=== PATIENT | male | born 1955 | race Caucasian/White ===

== ENCOUNTER → 2021-09-03 07:44 | Outpatient (CLI) | payer MEDICARE, SELFPAY ==
--- NOTE | ~2021-09-03 | US_ITS ---
EXAMINATION: US abdomen complete DATE: 09/03/2021 08:09 INDICATION: Disorder of iron metabolism, unspecified. TECHNIQUE: Multiple grayscale and Doppler ultrasound images of the abdomen were obtained. COMPARISON: None FINDINGS: The visualized portions of the head, body, and tail of the pancreas are normal. There is di ffuse hepatic steatosis. No liver surface nodularity. The gallbladder is normal in size. No gallstone s or gallbladder wall thickening. There was no sonographic Judge sign. The common duct is normal and measures 4 mm. The kidneys are normal in size. There is a 6 mm hyperechoic mass in the kidney. The s pleen is normal in size. Inferior vena cava is normal. The abdominal aorta is normal in caliber. IMPRESSION: 1. Diffuse hepatic steatosis. 2. 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 Abdomen CT without and with co ntrast is recommended in 6 months. Reviewed, dictated and finalized at location B. 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 Diffuse hepatic steatosis. 2. 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 Abdomen CT without and with contrast is recommended in 6 months.
== END ==
PROVIDERS: PCP Emergency Medicine; Visit Provider Emergency Medicine
DX: E83.10 Disorder of iron metabolism, unspecified (principal); K76.0 Fatty (change of) liver, not elsewhere classified; N28.89 Other specified disorders of kidney and ureter
CPT/HCPCS: 76700

== ENCOUNTER 2022-05-31 07:51 | Outpatient (CLI) | payer MEDICARE, SELFPAY ==
--- NOTE | 2022-06-25 13:25 | WPDSLEEPSTUD ---
Sleep Study Date of Study: 05/31/22 Ordering Provider: Radha Diaz, SUPERVISOR [employer]WORK Interpreting Physician: Emmy Evans MD Sleep Study Type: Split Polysomnogram Height: 1.83 m Weight: 127.006 kg Body Mass Index: 38.0 Neck Circumference (inches): 19 Allison: 2 Reason for Sleep Study Re-evaluation to get new CPAP supplies; initial diagnosis 1998, no supplies since 2018. Sleep History Rah Yanez is a 66-year-old man who has obstructive sleep apnea and uses CPAP. He was initially treated in 1998. In 2017 he started having supervision of his CPAP, previously no one had followed any compliance. He has not had any new supplies since 2018. There are other family members with sleep apnea, he has a brother that uses CPAP. He constantly awakens from sleep feeling short of breath. He does not awaken with heartburn, belching or coughing but always snores loudly. He occasionally has trouble sleeping with a cold. He frequently wakes up gasping for breath at night. He frequently has breathing problems at night observed by others. He rarely sweats excessively at night. He occasionally notices his heart beating or pounding irregularly at night. Does not fall asleep during the day, involuntarily or while driving. He does not have loss of muscle tone with strong emotion. He does not feel paralyzed on waking or falling asleep. He denies vivid dreamlike scenes on waking or falling asleep. He does not feel afraid to go to sleep. He does not have nightmares. He does not have dream recall. He occasionally has racing thoughts. Does not feel sad or depressed. He rarely has anxiety. He does not have muscular tension. Occasionally notices parts of his body jerking. He rarely kicks at night. He does not have crawling or aching feelings in his legs. He constantly has leg pain at night. Does not have morning jaw pain. He does not grind his teeth during sleep. He frequently is bothered by pain during the day. He occasionally is awakened by pain at night. He does not wake up feeling stiff in the morning with sore achy muscles are pain in the neck and spine. He has palpitations. Normal bedtime is 1:00 a.m. taking an hour or more to fall asleep. He typically wakes up 1-2 times during the night. He will roll over and reposition. It takes him a few minutes to get back to sleep. Wakes in the morning by 10:00 a.m.. He has the same schedule on the weekend. He does not take naps in the afternoon. A short nap lasting 10 or 15 minutes may be refreshing. After an average night of sleep he rarely feels refreshed. He frequently has excessive daytime sleepiness. Occasionally has problems with sexual function. Habits: Quit tobacco 33 years ago. No caffeine. Alcohol 1 per week. No recreational drugs. 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 diabetes type 2 hydrochlorothiazide 25 mg a day for hypertension metoprolol tartrate 25 mg a day hypertension glimepiride 4 mg a day diabetes atorvastatin 10 mg a day amitriptyline 75 mg HS for sleep Sleep Procedure This test was performed using the [employer] [facility] multiple channel system including EOG, EEG, submental EMG, EKG, nasal and oral airflow using thermistors and nasal pressure sensors, chest and abdominal belts for body position data, and pulse oximetry. Video monitoring was also performed. The study was scored using CMS guidelines. After the baseline portion the patient met criteria for a titration with an apnea hypopnea index of 40.1 an
[2022-06-25 14:15] VITALS: BMI 38.0
== END 2022-06-01 05:31 | disposition home or self-care (01) ==
PROVIDERS: PCP Internal Medicine; Visit Provider Nurse Practitioner
DX: G62.9 Polyneuropathy, unspecified (principal); G47.33 Obstructive sleep apnea (adult) (pediatric); G47.39 Other sleep apnea
CPT/HCPCS: 95811

== ENCOUNTER 2023-02-03 08:44 | Outpatient (CLI) | payer MEDICARE, SELFPAY ==
--- NOTE | 2023-02-03 | ECG_ITS ---
Measurements Intervals [place] Rate: 70 P: 34 WY: 161 QRS: -68 QRSD: 156 T: 30 QT: 420 QTc: 456 Interpretive Statements SINUS RHYTHM RIGHT BUNDLE BRANCH BLOCK [120+ ms QRS DURATION, UPRIGHT V1, 40+ ms S IN I/aVL/V4/V5/V6] LEFT ANTERIOR FASCICULAR BLOCK [QRS AXIS <= -45, QR IN I, RS IN II] MODERATE VOLTAGE CRITERIA FOR LVH, CONSIDER NORMAL VARIANT [MEETS CRITERIA IN ONE OF: R(aVL), S(V1), R(V5), R(V5/V6)+S(V1)] NO PREVIOUS ECG AVAILABLE FOR COMPARISON Electronically Signed On 02-03-2023 14:05:49 CDT by Della Valencia M.D.
--- NOTE | ~2023-02-03 | MR_ITS ---
EXAMINATION: MR lumbar spine wo con DATE: 02/03/2023 09:56 INDICATION: Mononeuropathy. Diabetes. TECHNIQUE: Magnetic resonance imaging (MRI) of the lumbar spine was performed without intravenous con trast. Sequences included sagittal T2-weighted FSE, sagittal T2-weighted FS FSE, sagittal T1-weighted FSE, and axial T2-weighted FSE. COMPARISON: None FINDINGS: Bone alignment is normal. There is mild chronic anterior wedging of T12 vertebral body. The re are Schmorl's nodes at most levels. There is mildly decreased disc height at L4-L5. The distal spi nal cord signal intensity is normal. The conus medullaris is at L1. The following disc levels are spe cifically discussed: L1-L2: The disc is bulging. There is mild bilateral facet joint osteoarthritis. There is mild left ne ural foraminal stenosis. There is no central canal stenosis. L2-L3: The disc is bulging. There is moderate bilateral facet joint osteoarthritis. There is mild fernando ateral neural foraminal stenosis. There is mild central canal stenosis. L3-L4: The disc is bulging. There is moderate bilateral facet joint osteoarthritis. There is mild fernando ateral neural foraminal stenosis. There is mild central canal stenosis. L4-L5: The disc is bulging and has an annular fissure. There is severe bilateral facet joint osteoart hritis. There is moderate bilateral neural foraminal stenosis. There is moderate central canal stenos is. L5-S1: The disc is bulging and has an annular fissure. There is moderate bilateral facet joint osteoa rthritis. There is mild bilateral neural foraminal stenosis. There is mild central canal stenosis. IMPRESSION: 1. Moderate lumbar spondylosis, worst at L4-L5. Reviewed, dictated and finalized at location A.
--- NOTE | ~2023-02-03 | MR_ITS ---
EXAMINATION: MR thoracic spine wo con DATE: 02/03/2023 09:53 INDICATION: Mononeuropathy. Diabetes. TECHNIQUE: Magnetic resonance imaging (MRI) of the thoracic spine was performed without intravenous c ontrast. COMPARISON: None FINDINGS: There is an arachnoid cyst at the inferior aspect of the cerebellum at the midline. There i s 2 mm anterolisthesis of C4 on C5. There is kyphosis of cervical spine. There is mild chronic anteri or wedging of T3, T6, T7, T8, T9, T10, and T12 vertebral bodies. There is a hemangioma in T4 vertebra l body. There is mildly decreased disc height from T3-T4 through T8-T9. At T5-T6, there is a central protrusion with mild central canal stenosis. At T6-T7, there is a central extrusion with mild central canal stenosis and ventral indentation of spinal cord. At T7-T8, the disc is bulging with mild centr al canal stenosis. At T11-T12, the disc is bulging with mild central canal stenosis. There is multile nancy facet joint osteoarthritis, severe on the right at T3-T4, T4-T5, and T5-T6. On the right, there i s mild neural foraminal stenosis at T3-T4, T4-T5, T5-T6, and T11-T12. On the left, there is mild neur al foraminal stenosis at T4-T5 and T9-T10. The spinal cord signal intensity is normal. IMPRESSION: 1. Mild thoracic spondylosis. 2. Thoracic kyphosis. Reviewed, dictated and finalized at location A.
[2023-02-03 10:44] LABS: Appearance Urine Clear (Clear); Bilirubin Urine Negative (Negative); Blood Urine Negative (Negative); Color Urine Yellow (Yellow); Glucose Urine UA Negative (Negative); Ketones Urine 2+ mg/dL (Negative); Leukocyte Esterase Ur Negative LEU/UL (Negative); Nitrate Urine Negative (Negative); Protein Urine Negative (Negative); Specific Grav Ur 1.022 (1.001-1.035)
[2023-02-03 10:44] LABS: Basophils Percent Auto 0.6 % (0.2-1.2); Eosinophils Absolute Auto 0.1 K/mm3 (0-0.3); Eosinophils Percent Auto 1.8 % (0-4.4); Hematocrit 47.3 % (42.0-52.0); Immature Granulocyte Absolute 0.02 K/mm3 (0.00-0.031); Immature Granulocyte Percent A 0.3 % (0-0.5); Immature Platelet Fraction Pct 4.1 % (0.9-11.2); Lymphocytes Absolute Auto 1.28 K/mm3 (0.9-3.2); Lymphocytes Percent Auto 20.6 % (18.3-44.2); Mean Corpuscular HGB Conc 33.8 g/dl (32-36); Mean Corpuscular Hemoglobin 33.5 pg (26-34); Mean Platelet Volume 10.6 fl (7.4-10.4); Monocytes Absolute Auto 0.6 K/mm3 (0.1-0.6); Monocytes Percent Auto 9.3 % (2.6-8.5); Neutrophils Absolute Auto 4.2 K/mm3 (1.3-6.7); Neutrophils Percent Auto 67.4 % (45.5-73.1); Platelet Count Result 152 k/mm3 (150-375); Red Blood Count 4.78 M/mm3 (4.6-6.20); Red Cell Distribution Width 12.2 % (11.5-14.5); White Blood Count 6.2 K/mm3 (4.5-10.0)
[2023-02-03 10:46] LABS: Add Urine Microscopic? NO
[2023-02-03 10:52] LABS: Alanine Aminotransferase 40 U/L (6-50); Albumin Level 4.3 g/dL (3.5-5.1); Alkaline Phosphatase 75 U/L (38-126); Anion Gap 9 mmol/L (8-16); Aspartate Amino Transferase 38 U/L (17-59); Bilirubin,Total 1.1 mg/dL (0.2-1.3); Blood Urea Nitrogen 15 mg/dL (9-20); Carbon Dioxide 27 mmol/L (22-30); Chloride 102 mmol/L (98-107); Estimated Glomerular Filt Rate > 60; Glucose 151 mg/dL (65-110); Potassium 3.8 mmol/L (3.4-5.0); Sodium 138 mmol/L (137-145)
== END 2023-02-03 08:45 | disposition home or self-care (01) ==
PROVIDERS: PCP Family Medicine
DX: E11.41 Type 2 diabetes mellitus with diabetic mononeuropathy (principal); M47.814 Spondylosis without myelopathy or radiculopathy, thoracic region; M40.204 Unspecified kyphosis, thoracic region
CPT/HCPCS: 36415; 72146; 72148; 80053; 81003; 85025; 85055; 93005

== ENCOUNTER → 2023-04-03 09:28 | Outpatient (CLI) | payer MEDICARE, SELFPAY ==
--- NOTE | ~2023-04-03 | XR_ITS ---
Thoracic spine: Clinical Indication: Neurostimulator AP and lateral views were performed. No fracture is seen. There is normal alignment of the vertebrae. The intervertebral disc spaces appe ar normal. Paravertebral soft tissues appear normal. Intrathecal catheter/neurostimulator wires prese nt. There is DISH of the thoracic spine. Impression: Intrathecal neurostimulator wire/catheter present. DISH of the thoracic spine. Reviewed, dictated and finalized at location . Impression: Intrathecal neurostimulator wire/catheter present. DISH of the thoracic spine.
== END ==
PROVIDERS: PCP Family Medicine
DX: Z96.82 Presence of neurostimulator (principal); M48.14 Ankylosing hyperostosis [Forestier], thoracic region
CPT/HCPCS: 72070

== ENCOUNTER 2023-04-17 09:14 | Outpatient (CLI) | payer MEDICARE, SELFPAY ==
--- NOTE | 2023-04-17 11:30 | NEURO_ITS ---
Impression: # Non-insulin dependent diabetic complains of left hand numbness. # Left ulnar neuropathy across the elbow. # Mild early left Carpal Tunnel Syndrome. # Abnormal neurogenic needle/EMG exam in ulnar distribution. Nerve Conduction Studies Anti Sensory Summary Table Stim Site NR Peak (ms) P-T Amp (?V) Site1 Site2 Delta-P (ms) Dist (cm) Joey (m/s) Left Median Anti Sensory (2-3nd Digit) Wrist 4.0 10.2 Wrist 2-3nd Digit 4.0 14.0 35 Wrist 4.0 18.6 Wrist 2-3nd Digit 4.0 14.0 35 Left Radial Anti Sensory (Base 1st Digit) Wrist 2.5 29.5 Wrist Base 1st Digit 2.5 0.0 Left Ulnar Anti Sensory (5th Digit) Wrist 2.5 27.2 Wrist 5th Digit 2.5 14.0 56 Motor Summary Table Stim Site NR Onset (ms) O-P Amp (mV) Site1 Site2 Delta-0 (ms) Dist (cm) Joey (m/s) Left Median Motor (Abd Poll Brev) Wrist 4.1 2.7 Elbow Wrist 6.0 33.0 55 Elbow 10.1 2.6 Left Ulnar Motor (Abd Dig Minimi) Wrist 2.8 3.6 A Elbow Wrist 7.2 31.0 43 A Elbow 10.0 2.7 B Elbow Wrist 4.2 22.0 52 B Elbow 7.0 2.1 F Wave Studies NR F-Lat (ms) L-R F-Lat (ms) Left Median (Mrkrs) (Abd Poll Brev) 33.68 Left Ulnar (Mrkrs) (Abd Dig Min) 33.64 EMG Side Muscle Nerve Root Ins Act Fibs Amp Dur Recrt Comment Left 1stDorInt Ulnar C8-T1 Nml Nml Decr >12ms Reduced Left Ext Indicis Radial (Post Int) C7-8 Nml Nml Nml Nml Nml Left Ext Digitorum Radial (Post Int) C7-8 Nml Nml Nml Nml Nml Left BrachioRad Radial C5-6 Nml Nml Nml Nml Nml Left PronatorTeres Median C6-7 Nml Nml Nml Nml Nml Left Abd Poll Brev Median C8-T1 Nml Nml Nml Nml Nml Left ABD Dig Min Ulnar C8-T1 Nml Nml Decr >12ms Reduced MTDD
== END 2023-04-17 09:15 | disposition home or self-care (01) ==
PROVIDERS: PCP Family Medicine; Visit Provider Physician Assistant Medical
DX: G56.22 Lesion of ulnar nerve, left upper limb (principal); G56.02 Carpal tunnel syndrome, left upper limb
CPT/HCPCS: 95886; 95909

== ENCOUNTER 2023-06-21 00:20 | Day surgery (SDC) | payer MEDICARE, SELFPAY ==
[2023-06-20 09:31] VITALS: BMI 38.0
--- NOTE | 2023-06-20 09:45 | PC.NURSE ---
Report to the Outpatient Waiting Room, entrance under the green pavilion located off [facility], at time __0600 on date ___06/21/23____. Planned Procedure Time: ____729____. Time changes happen often and if your time is changed the preop area will call you the afternoon before. - You and your visitor will be asked to self-screen and do not enter if you have any COVID symptoms. - A mask is optional within the hospital at this time. - No food/drink from 8 HRS PRIOR TO SURGERY - 222906/19/23 (10:30PM 06/20/23) Take the following medications with a SIP of water the morning of surgery: __GABAPENTIN, METOPROLOL & PAIN PILL IF NEEDED DO NOT STOP ANY OF YOUR OTHER PRESCRIPTION MEDICATIONS PRIOR TO SURGERY ?EXCEPT THE FOLLOWING Medications to discontinue per physician N/A Date to take last dose Please no make-up, nail bhutanese, hairspray, perfume, deodorant, or body powder the day of surgery. No jewelry (including any body piercings) or valuables the day of surgery, leave them at home. Please take a shower or bath the night before, or the morning of, surgery with an antibacterial soap. Wear comfortable, loose fitting clothing. Children are encouraged to wear pajamas. - Jewelry must be removed prior to entering the operating room. Rings and piercings that are not removed may be cut off. - The hospital will not accept responsibility for valuables. - Please leave all valuables, including medications, at home the day of surgery. If you are going home after surgery, a licensed route delivery service driver must drive you home. - NO public transportation without another adult if you receive anesthesia. - We recommend that an adult stay with you for 24 hours following discharge. - We also recommend that you do not drive, make important decision, drink alcoholic beverages, or take any drugs that were not prescribed by your health care provider for at least 24 hours after your discharge time. For Pediatric surgeries, we recommend two adults accompany the child home. Follow any additional instructions given to you from your surgeon. If you or anyone in your household have experienced Covid symptoms in the past week, please notify your surgeon or the nurse liaison at the phone number below for possible testing. Telephone instructions given to ___PT and asked if any additional questions and then verbalized understanding. Patient advised to call surgeon office or pre surgery nurse liaison [phone] if any additional questions.
[2023-06-21 06:23] VITALS: BP 139/74; PULSE 83; RESP 18; TEMP 36.4; O2SAT 95
[2023-06-21] MEDS: LACTATED RINGERS 1,000 ML 30 ML IV CONT (06:40)
[2023-06-21 06:47] LABS: Glucose Point of Care 209 mg/dl (65-105)
[2023-06-21 06:59] LABS: Anion Gap 10 mmol/L (8-16); Blood Urea Nitrogen 17 mg/dL (9-20); Calcium 9.2 mg/dL (8.4-10.2); Carbon Dioxide 25 mmol/L (22-30); Chloride 102 mmol/L (98-107); Estimated CRCL calculation 105 ml/min; Estimated Glomerular Filt Rate > 60; Glucose 197 mg/dL (65-110); Potassium 3.9 mmol/L (3.4-5.0); Sodium 137 mmol/L (137-145)
--- NOTE | 2023-06-21 07:00 | WPDHPUPDATE1 ---
History and Physical Update Update Date/Time: 06/21/23 07:00 Patient seen and examined in pre-operative holding area. No interval change in medical history or symptoms. Continues to desire to proceed with left cubital tunnel release, left carpal tunnel release revision, and left guyon canal release . Reviewed procedure, post-op expectations and risks including but not limited to bleeding, infection, injury to tendon/nerve/vessel, decreased hand function, stiffness, RSD, no change or worsening of symptoms. Patient stated understanding and signed the consent form wishing to proceed.
--- NOTE | 2023-06-21 07:12 | P.OP_ITS ---
Procedure Note - Detailed Date of Procedure 06/21/23 Pre-op Diagnosis left cubital tunnel syndrome and left carpal tunnel and guyon canal syndrome Post-op Diagnosis Same Procedure Performed left cubital tunnel release and left carpal tunnel release revisiion and guyon canal release Surgeon Alissa Mckay MD Concrete Tester Rayne Rodríguez PA-C Anesthesia MAC Description of Procedure Patient was seen and examined in pre-op holding area. Consent was signed. Patient was taken back to the operating room on the stretcher in supine position. SCDs were placed on the lower extremities and inflated. Antibiotics were given IV. A tourniquet was placed on the left upper extremity. After ane sthesia administered sedation I injected 10cc 1%lido with epi and 0.5%marcaine plain among the operative sites. The left upper extremity was exanguinated with an esmarch and tourniquet inflated to 250mmHg. I proceeded with making a longitudinal inciison over end of cubital tunnel between two heads of FCU through skin and dermis with a 15 blade scalpel. Littler scissors were used to spread down to FCU fascia. I made an incision in the FCU facia and spread between the two heads identifying the ulnar nerve. I proceeded with complete retrograde of the cubital tunnel including 7cm proximal to epicondyle to release intramuscular septum. The nerve appeared healthy with visible vaso nervorum. I put elbow through range of motion and no subluxation of the nerve. I irrigated with normal saline and closued with 3-0 vicryl and 4- 0 monocryl. Next I took my attention to the left wrist where I made a volar incision in palm in line with ring finger and then obliquely across wrist flexion crease to create an ulnarly based flap. I identified the median nerve proximally outside previous zone of surgery and proceeded with release of scar and carpal tunnel in an anterograde fashion. Tenolysis was performed on the flexor digitorum superficialis tendons for excessive tenosynovitis and attachment to the median nerve. I proceeded with idenitifying the ulnar nerve proximally and proceeded with complete release of guyon canal identifying both superficial and deep branches distally. no ganglion cyst was seen. I irrigation with normal saline and closure with 4-0 chromic. A dressing of xeroform, 4x4, jacquelyn, and a volar splint for patient safety, security and comfort was applied and secured with an marycruz bandage. The elbow was dressing with derabond, 4x4, jacquelyn, posterior elbow splint and marycruz. Dressings were placed after the tourniquet was let down noting the hand was warm and well perfused. The patient was awaken and transferred to recovery room in stable conditiion. Complications: none EBL: 1cc Disposition: tolerated procedure well and will be discharged home Rayne Rodríguez PA-C was essential throughout the procedure for positioning, retraction, instrumentation, closure, and dressing placement [facility] [place] Billing Surgery - Charge Forward: Surgery Billing (10547, [id number], [id number], and [id number]. same codes for Rayne Rodríguez PA-C but add modifier to all)
--- NOTE | 2023-06-21 07:15 | WPDANESEPPF ---
Anes - Initial Pre Proc Eval Procedure: Operation Date: 06/21/23 07:30 Proposed Procedures p Left Cubital Tunnel Release, Possible Open Carpal Tunnel Release, Possible Guyon's Canal Release - Alissa Mckay MD Date/Time: 06/21/23 07:15 Surgeon: Alissa Mckay MD Pre Op Diagnosis: left ulnar nerve entrapment at elbow Patient Data Age: 67 Gender: M Height: 1.83 m Weight: 127.9 kg Last Vital Signs Temp 97.5 F L 06/21/23 06:23 Pulse 83 06/21/23 06:23 Resp 18 06/21/23 06:23 BP 139/74 06/21/23 06:23 Pulse Ox 95 06/21/23 06:23 O2 Del Method Room Air 06/21/23 06:23 Allergies Allergy/AdvReac Type Severity Reaction Status Date / Time No Known Allergies Allergy Verified 06/21/23 06:48 Home Medications Medication Instructions Recorded Confirmed Type atorvastatin 10 mg tablet 10 mg PO QHS 03/05/23 06/21/23 History gabapentin 600 mg tablet See Rx Instructions .Route .COMPLEX 03/05/23 06/21/23 History glimepiride 4 mg tablet 4 mg PO QAM 03/05/23 06/21/23 History hydrochlorothiazide 25 mg tablet 25 mg PO DAILY 03/05/23 06/21/23 History metformin 750 mg tablet,extended 750 mg PO BID 03/05/23 06/21/23 History release 24 hr metoprolol tartrate 25 mg tablet 37.5 mg PO DAILY 03/05/23 06/21/23 History oxycodone-acetaminophen 10 mg-325 1 tablet PO Q8H PRN Pain 03/05/23 06/21/23 History mg tablet testosterone 75 mg implant pellet 700 mg subcut ONCE 03/05/23 06/21/23 History (Testopel) trazodone 100 mg tablet 150 mg PO QHS 06/20/23 06/21/23 History Laboratory Tests 06/21/23 06/21/23 06:41 06:42 Sodium 137 mmol/L (137-145) Potassium 3.9 mmol/L (3.4-5.0) Chloride 102 mmol/L (98-107) Carbon Dioxide 25 mmol/L (22-30) Anion Gap 10 mmol/L (8-16) BUN 17 mg/dL (9-20) Creatinine 0.80 mg/dL (0.7-1.3) Estim Creat Clear Calc 105 ml/min Estimated GFR > 60 (59 - ) Glucose 197 H mg/dL (65-110) POC Capillary Glucose 209 H mg/dl (65-105) Calcium 9.2 mg/dL (8.4-10.2) Patient hx anesthesia problems: none Family hx anesthesia problems: none Results Review: All pre-operative results and documents have been reviewed as part of the pre-operative evaluation. 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 Testicular cancer Surgical History Surgical History History of tonsillectomy Hx of carpal tunnel repair S/P TURP Status post orchiectomy Status post vasectomy Family History Family History Father Hypertension Heart disease Mother Breast cancer Grandparent Diabetes mellitus Social History Social History Smoking packs per day: 2 Smoking cigarettes per day: 40.0 Years smoked: 10 Smoking pack-years: 20.00 Smoking status: Former smoker Tobacco type: cigarettes Second hand tobacco smoke exposure: No Smoking end date: 08/27/85 Alcohol intake: current Drinks per week: 1 Alcohol use details: 1 - MONTH Substance use: never Substance use type: does not use Lack of Transportation: No Lack of Food: Never True Current Housing: I Have Housing Concerned About Future Housing: No Difficulty Paying Gas/Electric Bills: No Difficulty Paying for Meds: No Currently Unemployed: No Education: High School Diploma/GED Difficulty w/ Childcare or Family Care: No Living arrangements: with family Occupation/Education: retired Gender identity (if verbalized by the patient): Male Spiritual care concerns: No Agree to blood products: Yes Anes - Eval Final PreProcedure Day of Procedure 06/21/23
[2023-06-21] MEDS: ceFAZolin 3 GM/D5W 100 ML 100 ML IVPB (07:37)
[2023-06-21] MEDS: LIDO 1%/EPINEPHRINE 1:100,000 50 ML VIAL 20 ML INFILTRATE (07:58)
[2023-06-21 08:45] VITALS: BP 124/74; PULSE 82; RESP 14; O2SAT 93
[2023-06-21 09:15] VITALS: BP 118/74; PULSE 70; RESP 14; O2SAT 93
[2023-06-21 09:18] LABS: Glucose Point of Care 229 mg/dl (65-105)
[2023-06-21 09:45] VITALS: BP 131/74; PULSE 67; RESP 14
[2023-06-21 09:59] LABS: Hepatitis B Surface Antigen Negative (Negative)
[2023-06-21 10:16] LABS: HIV 1/2 Ab P24 Ag Result Negative (Negative); Hepatitis C Virus Antibody Negative (Negative)
== END 2023-06-21 10:09 | disposition home or self-care (01) ==
PROVIDERS: Anesthesiology; PCP Family Medicine; Visit Provider Plastic Surgery
PROC: (CPT 64718; principal; 2023-06-21 07:30)
DX: G56.02 Carpal tunnel syndrome, left upper limb (principal); G56.22 Lesion of ulnar nerve, left upper limb; Z11.4 Encounter for screening for human immunodeficiency virus [HIV]; E11.9 Type 2 diabetes mellitus without complications; I10 Essential (primary) hypertension; G47.33 Obstructive sleep apnea (adult) (pediatric); G62.0 Drug-induced polyneuropathy; Z79.84 Long term (current) use of oral hypoglycemic drugs; Z85.47 Personal history of malignant neoplasm of testis; Z87.891 Personal history of nicotine dependence; E66.9 Obesity, unspecified; Z68.38 Body mass index [BMI] 38.0-38.9, adult
CPT/HCPCS: 64718; 64721; 36415; 80048; 82948; 86703; 86803; 87340; G0432; J0690; J1170; J2250; J2405; J2704; J3010; J7120

== ENCOUNTER 2023-09-18 10:15 | Emergency (ER) | payer MEDICARE, SELFPAY ==
--- NOTE | ~2023-09-18 | XR_ITS ---
EXAMINATION: XR toe 1st RT min 2V DATE: 09/18/2023 11:48 INDICATION: Right great toe pain post injury TECHNIQUE: Dorsal plantar, lateral and 2 oblique views of the right great toe were obtained. COMPARISON: None FINDINGS: Bone alignment is normal. No fracture identified. There is at least moderate osteoarthritis at the fi rst metatarsophalangeal joint with nonuniform joint space narrowing and small marginal osteophytes. T here are subarticular and juxta articular lucencies at both sides of the first metatarsophalangeal luz int space and to lesser degree at the head of the first proximal phalanx which could represent either degenerative subchondral cysts, erosions such as in the setting of gout or combination of the 2. Add itional mild osteoarthritis at the interphalangeal joints of the first and second toes. Chronic appea ring dystrophic calcifications in the soft tissues at the lateral base of the first proximal phalanx without evident acute appearing donor site which could be either additional degenerative loose bodies or tiny heterotopic ossicles related to old trauma. IMPRESSION: Degenerative skeletal changes as detailed above. No acute osseous abnormality. Reviewed, dictated and finalized at location A. AND TEST SUPERVISOR
[2023-09-18 11:02] VITALS: BP 153/81; PULSE 91; RESP 16; TEMP 36.6; O2SAT 96
--- NOTE | 2023-09-18 11:05 | ED.LOWEXIN ---
HPI - Extremity Injury (Lower) General Chief Complaint: Extremity Injury, Lower Stated Complaint: right 1st toe injury Time Seen by Provider: 09/18/23 11:05 Focused HPI: This is a 67-year-old male that presents to the emergency department for right great toe injury. Reports sustained about 5 days ago. Reports bleeding, swelling and pain to the area. Also reports redness. Denies fevers. GENERAL: Well-appearing, well-nourished, and in no acute distress. HEAD: Normocephalic, atraumatic. CHEST: No respiratory distress. HEART: Regular rate MUSCULOSKELETAL: Right great toe with bruising and mild edema with overlying redness. Normal DP pulse NEURO: Alert and oriented x3. Patient screened in triage and initial orders placed. Additional care and disposition to be based upon diagnostic testing and treatment. Related Data Home Medications Medication Instructions Recorded Confirmed oxycodone-acetaminophen 10 mg-325 1 tablet PO Q8H PRN Pain 03/05/23 06/21/23 mg tablet testosterone 75 mg implant pellet 700 mg subcut ONCE 03/05/23 06/21/23 (Testopel) duloxetine 30 mg capsule,delayed 30 mg PO DAILY 08/16/23 release Allergies Allergy/AdvReac Type Severity Reaction Status Date / Time No Known Allergies Allergy Verified 09/18/23 11:28 Review of Systems Review of Systems: CONSTITUTIONAL: Denies fever SKIN: Reports hematoma NEUROLOGIC: Reports numbness All systems reviewed & are unremarkable except as noted in HPI and below PMFSH Past Medical History Medical History Diabetes Heel spur Hypertension Obstructive sleep apnea 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 Testicular cancer Surgical History Surgical History History of tonsillectomy Hx of carpal tunnel repair S/P TURP Status post orchiectomy Status post vasectomy Family History Family History Father Hypertension Heart disease Mother Breast cancer Grandparent Diabetes mellitus Social History Social History Smoking packs per day: 2 Smoking cigarettes per day: 40.0 Years smoked: 10 Smoking pack-years: 20.00 Smoking status: Former smoker Tobacco type: cigarettes Second hand tobacco smoke exposure: No Smoking end date: 08/27/85 Alcohol intake: current Drinks per week: 1 Alcohol use details: 1 - MONTH Substance use: never Substance use type: does not use Lack of Transportation: No Lack of Food: Never True Current Housing: I Have Housing Concerned About Future Housing: No Difficulty Paying Gas/Electric Bills: No Difficulty Paying for Meds: No Currently Unemployed: No Education: High School Diploma/GED Difficulty w/ Childcare or Family Care: No Living arrangements: with family Occupation/Education: retired Gender identity (if verbalized by the patient): Male Spiritual care concerns: No Agree to blood products: Yes Exam Narrative: GENERAL: Well-appearing, well-nourished, and in no acute distress. HEAD: Normocephalic, atraumatic. EYES: EOMI. CHEST: Clear to auscultation. No respiratory distress. No wheezes rales or rhonchi HEART: Regular rate and rhythm. No murmur heard. Normal peripheral pulses. EXTREMITIES: Right great toe with bruising and mild edema with overlying redness. Mild oozing of blood. Normal DP pulse SKIN: Warm, dry, no rash. NEURO: No focal deficits. Alert and oriented x3. PSYCH: Normal mood and affect Course Course Emergency Course: patient updated on workup and agrees with plan of care Vital Signs Vital signs: Vital Signs Temperature 97.8 F 09/18/23 11:02 Pulse Rate 91 09/18/23 11:02 Respiratory Rate 16 09/18/23 11:02 Blood Pressure 153/81 H 09/18/23 11:02 Pulse Oximetry 96 09/18/23 11:02
[2023-09-18 12:16] LABS: Basophils Absolute Auto 0.1 K/mm3 (0.0-0.1); Basophils Percent Auto 0.7 % (0.2-1.2); Eosinophils Absolute Auto 0.2 K/mm3 (0-0.3); Eosinophils Percent Auto 2.1 % (0-4.4); Hematocrit 46.8 % (42.0-52.0); Hemoglobin 16.3 g/dL (14.0-18.0); Immature Granulocyte Absolute 0.03 K/mm3 (0.00-0.031); Immature Granulocyte Percent A 0.4 % (0-0.5); Immature Platelet Fraction Pct 5.3 % (0.9-11.2); Lymphocytes Absolute Auto 1.16 K/mm3 (0.9-3.2); Lymphocytes Percent Auto 15.5 % (18.3-44.2); Mean Corpuscular HGB Conc 34.8 g/dl (32-36); Mean Corpuscular Hemoglobin 33.5 pg (26-34); Mean Corpuscular Volume 96.1 fl (80-100); Mean Platelet Volume 11.1 fl (7.4-10.4); Monocytes Absolute Auto 0.8 K/mm3 (0.1-0.6); Monocytes Percent Auto 10.2 % (2.6-8.5); Neutrophils Absolute Auto 5.3 K/mm3 (1.3-6.7); Neutrophils Percent Auto 71.1 % (45.5-73.1); Platelet Count Result 137 k/mm3 (150-375); Red Blood Count 4.87 M/mm3 (4.6-6.20); Red Cell Distribution Width 14.3 % (11.5-14.5); White Blood Count 7.5 K/mm3 (4.5-10.0)
[2023-09-18 12:29] LABS: Anion Gap 13 mmol/L (8-16); Blood Urea Nitrogen 10 mg/dL (9-20); CRP < 0.5 mg/dL (<1.0); Calcium 9.3 mg/dL (8.4-10.2); Carbon Dioxide 25 mmol/L (22-30); Chloride 99 mmol/L (98-107); Estimated CRCL calculation 92 ml/min; Estimated Glomerular Filt Rate > 60; Glucose 270 mg/dL (65-110); Potassium 4.1 mmol/L (3.4-5.0); Sodium 137 mmol/L (137-145)
[2023-09-18 13:09] LABS: Erythrocyte Sedimentation Rate 3 mm/hr (0-20)
--- NOTE | 2023-09-18 13:34 | PC.NURSE ---
Pt was dressed and walking out of the room, unable to get DC vs from pt.
== END 2023-09-18 13:36 | disposition home or self-care (01) ==
PROVIDERS: Emergency Provider Physician Assistant; PCP Family Medicine
DX: S90.211A Contusion of right great toe with damage to nail, initial encounter (principal); L03.031 Cellulitis of right toe; E11.9 Type 2 diabetes mellitus without complications; I10 Essential (primary) hypertension; Z85.47 Personal history of malignant neoplasm of testis; Z87.891 Personal history of nicotine dependence; Z79.84 Long term (current) use of oral hypoglycemic drugs; W22.09XA Striking against other stationary object, initial encounter
CPT/HCPCS: 36415; 73660; 80048; 85025; 85055; 85652; 86140; 99283

== ENCOUNTER 2024-02-12 09:24 | Outpatient (CLI) | payer MEDICARE, SELFPAY ==
--- NOTE | 2024-02-12 11:00 | NEURO_ITS ---
Impression: # Diabetic patient on metformin , Has undergone carpal tunnel release and ulnar nerve transposition complains of increasing numbness of the hands. # Axonal neuropathy, motor and sensory, with mild superimposed Carpal Tunnel Syndrome and non-localizing ulnar neuropathy around the elbows. # Abnormal Needle/EMG exam. # Clinical correlation recommended. Nerve Conduction Studies Anti Sensory Summary Table Stim Site NR Peak (ms) P-T Amp (?V) Site1 Site2 Delta-P (ms) Dist (cm) Joey (m/s) Left Median Anti Sensory (2-3nd Digit) Wrist 4.4 5.1 Wrist 2-3nd Digit 4.4 14.0 32 Wrist 5.1 17.7 Wrist 2-3nd Digit 4.4 14.0 32 Right Median Anti Sensory (2-3nd Digit) Wrist 3.7 13.2 Wrist 2-3nd Digit 3.7 14.0 38 Wrist NR Wrist 2-3nd Digit 3.7 14.0 38 Left Radial Anti Sensory (Base 1st Digit) NO RESPONSE Wrist NR Wrist Base 1st Digit 0.0 Right Radial Anti Sensory (Base 1st Digit) NO RESPONSE Wrist NR Wrist Base 1st Digit 0.0 Left Ulnar Anti Sensory (5th Digit) Wrist 2.7 1.6 Wrist 5th Digit 2.7 14.0 52 Right Ulnar Anti Sensory (5th Digit) Wrist 3.3 21.9 Wrist 5th Digit 3.3 14.0 42 Motor Summary Table Stim Site NR Onset (ms) O-P Amp (mV) Site1 Site2 Delta-0 (ms) Dist (cm) Joey (m/s) Left Median Motor (Abd Poll Brev) Wrist 3.8 3.5 Elbow Wrist 6.3 32.0 51 Elbow 10.1 3.5 Right Median Motor (Abd Poll Brev) Wrist 4.0 2.5 Elbow Wrist 5.5 31.0 56 Elbow 9.5 1.8 Left Ulnar Motor (Abd Dig Minimi) Wrist 2.3 1.9 A Elbow Wrist 7.9 34.0 43 A Elbow 10.2 0.4 B Elbow Wrist 5.4 23.0 43 B Elbow 7.7 1.0 Right Ulnar Motor (Abd Dig Minimi) Wrist 2.4 5.5 A Elbow Wrist 7.2 33.0 46 A Elbow 9.6 3.3 B Elbow Wrist 4.7 22.0 47 B Elbow 7.1 3.6 F Wave Studies NR F-Lat (ms) L-R F-Lat (ms) Left Median (Mrkrs) (Abd Poll Brev) 36.02 3.56 Right Median (Mrkrs) (Abd Poll Brev) 32.46 3.56 Left Ulnar (Mrkrs) (Abd Dig Min) 32.86 1.03 Right Ulnar (Mrkrs) (Abd Dig Min) 31.83 1.03 EMG Side Muscle Nerve Root Ins Act Fibs Amp Dur Recrt Comment Right 1stDorInt Ulnar C8-T1 Nml Nml Nml >12ms +2 Right Ext Indicis Radial (Post Int) C7-8 Nml Nml Nml Nml Nml Right Ext Digitorum Radial (Post Int) C7-8 Nml Nml Nml Nml Nml Right BrachioRad Radial C5-6 Nml Nml Nml Nml +1 Right PronatorTeres Median C6-7 Nml Nml Nml Nml +1 Right Abd Poll Brev Median C8-T1 Nml Nml Nml >12ms +2 Right ABD Dig Min Ulnar C8-T1 Nml Nml Nml >12ms +2 Left 1stDorInt Ulnar C8-T1 Nml Nml Nml >12ms +2 Left Ext Indicis Radial (Post Int) C7-8 Nml Nml Nml Nml Nml Left Ext Digitorum Radial (Post Int) C7-8 Nml Nml Nml Nml Nml Left BrachioRad Radial C5-6 Nml Nml Nml Nml +1 Left PronatorTeres Median C6-7 Nml Nml Nml Nml +1 Left Abd Poll Brev Median C8-T1 Nml Nml Nml >12ms +2 Left ABD Dig Min Ulnar C8-T1 Nml Nml Nml >12ms +2 Right Biceps Musculocut C5-6 Nml Nml Nml Nml +1 Right Triceps Radial C6-7-8 Nml Nml Nml Nml +1 Right Deltoid Axillary C5-6 Nml Nml Nml Nml +1 Left Biceps Musculocut C5-6 Nml Nml Nml Nml +1 Left Triceps Radial C6-7-8 Nml Nml Nml Nml +1 Left Deltoid Axillary C5-6 Nml Nml Nml Nml +1 MTDD
== END 2024-02-12 09:25 | disposition home or self-care (01) ==
PROVIDERS: PCP Family Medicine; Visit Provider Physician Assistant Surgical
DX: G56.03 Carpal tunnel syndrome, bilateral upper limbs (principal); G56.22 Lesion of ulnar nerve, left upper limb; G62.9 Polyneuropathy, unspecified; R94.131 Abnormal electromyogram [EMG]; E11.9 Type 2 diabetes mellitus without complications; Z79.84 Long term (current) use of oral hypoglycemic drugs; Z98.890 Other specified postprocedural states
CPT/HCPCS: 95886; 95911

== ENCOUNTER 2024-05-20 10:13 | Outpatient (CLI) | payer MEDICARE, SELFPAY ==
[2024-05-21 19:13] LABS: Red Blood Cell Folate 484 ng/mL RBC (>280)
[2024-05-22 16:32] LABS: Immunofixation, Serum Normal pattern.
[2024-05-22 22:34] LABS: Vitamin B6 2.6 ng/mL (2.1-21.7)
[2024-05-23 10:28] LABS: Methylmalonic Acid 186 nmol/L (69-390)
[2024-05-23 12:43] LABS: Vitamin D 1,25 (OH)2 Total 25 pg/mL (18-72); Vitamin D2 1,25 (OH)2 <8 pg/mL; Vitamin D3 1,25 (OH)2 25 pg/mL
[2024-05-23 14:48] LABS: Vitamin B1 6 nmol/L (8-30)
[2024-05-30 08:15] LABS: Reference Lab Test Name ANA RFX RA
[2024-05-30 08:20] LABS: Reference Lab Test Result Negative
== END 2024-05-20 10:14 | disposition home or self-care (01) ==
LOC: ANHLAB 10:16
PROVIDERS: PCP Family Medicine; Visit Provider Psychiatry & Neurology Neurology
DX: G60.8 Other hereditary and idiopathic neuropathies (principal); G93.0 Cerebral cysts; G56.03 Carpal tunnel syndrome, bilateral upper limbs; E55.9 Vitamin D deficiency, unspecified
CPT/HCPCS: 36415; 82607; 82652; 82747; 83921; 84207; 84425; 84443; 86334

== ENCOUNTER 2024-09-15 07:47 | Outpatient (CLI) | payer MEDICARE, SELFPAY ==
[2024-09-15 08:16] LABS: Basophils Percent Auto 0.5 % (0.2-1.2); Eosinophils Absolute Auto 0.2 K/mm3 (0-0.3); Eosinophils Percent Auto 2.9 % (0-4.4); Hematocrit 46.9 % (42.0-52.0); Hemoglobin 16.6 g/dL (14.0-18.0); Immature Granulocyte Absolute 0.03 K/mm3 (0.00-0.031); Immature Granulocyte Percent A 0.5 % (0-0.5); Immature Platelet Fraction Pct 4.2 % (0.9-11.2); Lymphocytes Absolute Auto 1.25 K/mm3 (0.9-3.2); Lymphocytes Percent Auto 21.3 % (18.3-44.2); Mean Corpuscular HGB Conc 35.4 g/dl (32-36); Mean Corpuscular Hemoglobin 33.3 pg (26-34); Mean Corpuscular Volume 94.2 fl (80-100); Mean Platelet Volume 10.5 fl (7.4-10.4); Monocytes Absolute Auto 0.6 K/mm3 (0.1-0.6); Monocytes Percent Auto 9.4 % (2.6-8.5); Neutrophils Absolute Auto 3.8 K/mm3 (1.3-6.7); Neutrophils Percent Auto 65.4 % (45.5-73.1); Platelet Count Result 122 k/mm3 (150-375); Red Blood Count 4.98 M/mm3 (4.6-6.20); Red Cell Distribution Width 12.6 % (11.5-14.5); White Blood Count 5.9 K/mm3 (4.5-10.0)
[2024-09-15 08:23] LABS: Alanine Aminotransferase 42 U/L (6-50); Alkaline Phosphatase 91 U/L (38-126); Anion Gap 10 mmol/L (4-12); Aspartate Amino Transferase 35 U/L (17-59); Bilirubin,Total 1.3 mg/dL (0.2-1.3); Blood Urea Nitrogen 15 mg/dL (9-20); Calcium 8.8 mg/dL (8.4-10.2); Carbon Dioxide 24 mmol/L (22-30); Chloride 102 mmol/L (98-107); Cholesterol 127 mg/dL (0-200); Estimated Glomerular Filt Rate > 60; Glucose 192 mg/dL (65-110); HDL Direct 38 mg/dL; Potassium 4.2 mmol/L (3.4-5.0); Sodium 136 mmol/L (137-145); Triglycerides 252 mg/dL (<150)
[2024-09-15 08:35] LABS: LDL Cholesterol Direct 58 mg/dL
[2024-09-15 08:48] LABS: Free T4 Free Thyroxine 0.95 ng/dL (0.78-2.19)
[2024-09-15 09:46] LABS: Hemoglobin A1C 9.3 % (<5.7)
--- OUTSIDE RECORDS SUMMARY | 2024-09-18 11:37 | XMS_ITS | Encounter Summary ---
Author Organization [facility] Health Address [address] [place] [address] Care Team Providers Care Booster Station Operator Name Role Phone Unavailable Primary Care Provider Aggie e Encounter Details Date Type Department Care Team (Late st Contact Info) Description 03/16/2022 Lab Requisition [facility] Care DermPath Lab [address] [place] [address] Papo Escobar MD [address] [place] [address] Social History Tobacco Use Types Packs/Day Years Used Date Smoking Tobacco: Former Cigarettes Q uit: 08/27/1984 Alcohol Use Standard Drinks/Week Comments Yes 0 (1 standard drink = 0.6 oz pur e alcohol) occasional Sex and Gender Information Value Date Recorded Sex Assigned at Not on file Gender Identity Not on file Sexual Orientation Not on file documented as of this encounter Plan of Treatment Not on file documented as of this encounter Procedures Procedure Name Priority Date/Time Associated Diagnosis Comments DERMATOPATHOLOGY Routine 03/14/2022 12:0 0 AM CDT documented in this encounter Results * DERMATOPATHOLOGY (03/14/2022 12:00 AM CDT) Case Report Dermatopathology Report ? Case: [id number] ? Authorizing Provider: ??Papo Escobar MD ?Collected: ? 03/14/2022 12:00 AM ? Ordering Location: ? [facility] DermPath Lab ?Received: ?03/16/2022 07:44 AM ? Pathologist: ? Dianna Shaw MD ? Specimen: ?Skin, left mid back ? 2 2:53 PM CDT DERMATOPATHOLOGY LABORATORY Final Diagnosis Specimen A. SKIN, left mid back: BASAL CELL CARCINOMA, NODULAR TYPE; PIGMENTED (C44.519) (see microscopic description) 2 2:53 PM CDT DERMATOPATHOLOGY LABORATORY Clinical History BCCA vs. MM. Path# [id number] 2 2:53 PM CDT DERMATOPATHOLOGY LABORATORY Gross Description Specimen A: Received is one formalin filled container labeled with the patient's name and designated left mid back. The specimen consists of a shave biopsy measuring [id number]. Jar 0. 2 2:53 PM CDT DERMATOPATHOLOGY LABORATORY Microscopic Description Specimen A. SKIN, left mid back: Within the dermis there are aggregates of basaloid cells with a high nuclear to cytoplasmic ratio and peripheral palisading. There is abundant melanin. 2 2:53 PM CDT DERMATOPATHOLOGY LABORATORY Disclaimer An external and internal positive and negative controls are appropriate for the histochemical, immunohistochemical and immunofluorescence stain(s) in this case (if any), except where stated explicitly. The performance characteristics of the stain(s) cited in this report were developed and its performance characteristic determined by the Dermatopathology Laboratory at [facility], directed by Dr. Jeferson Golden. These tests need not be, and therefore are not, approved by the [place] Food and Drug Administration. The tests are used for clinical purposes. Billing Codes Specimen Charges Stain Charges 73648 1 2 2:53 PM CDT DERMATOPATHOLOGY LABORATORY Embedded Images 2 2:53 PM CDT DERMATOPATHOLOGY LABORATORY Pathology/Cytolog y TISSUE SPECIMEN FROM SKIN / Unknown 03/14/2022 03/16/2022 7:44 AM CDT Papo Escobar MD LAB - PATHOLOGY/CYTO LOGY ORDERABLES DERMATOPATHOLOGY LABORATORY [facility] - Department of Dermatology [facility] Medicine [address] [place] [address], [address] [phone] documented in this encounter Visit Diagnoses Not on filedocumented in this encounter
--- OUTSIDE RECORDS SUMMARY | 2024-09-18 11:37 | XMS_ITS | Clinical Summary ---
Author Organization [facility] Address [address], [facility] [address] [place] [address] Phone Care Team Providers Care Desizing Machine Operator Head End Name Role Phone Efrain Sales Primary Care Provider [phone] Efrain Sales Unavailable Allergies No known active allergies Medications Cholecalciferol (Vitamin D3) 1.25 MG (31080 UT) Tablet Take by mouth. Acti ve amitriptyline (ELAVIL) 75 MG Tablet TAKE 1 TABLET BY MOUTH EVERY DAY AT BEDTIME 2 Active Ascorbic Acid 1000 MG Tablet Take 1,000 mg by mouth. Active atorvastatin (LIPITOR) 10 MG Tablet Take 10 mg by mouth daily. 2 Active hydroCHLOROthia zide 25 MG Tablet Take 25 mg by mouth daily. 2 Active metFORMIN (GLUCOPHAGE-XR) 750 MG TABLET SR 24 HR Take 750 mg by mouth 2 times daily. 2 Active oxyCODONE-Aceta minophen (PERCOCET) 10-325 MG Tablet TAKE 1 TABLET BY MOUTH EVERY 6 HOURS NEEDED 2 Active [place]-3 Fatty Acids (fish oil) 1200 MG Capsule Take 1,200 mg by mouth daily. Active gabapentin (NEURONTIN) 600 MG Tablet gabapentin 600 mg tablet Active TESTOSTERONE TD by Other route. Active Active Problems Problem Noted Date Diagnosed Date Elevated ferritin 09/15/2021 Immunizations Immunization Administration Dates Next Due Covid-19, Mrna, Lnp-s, Pf, 1 00 Mcg Or 50 Mcg Dose (MODERNA) 09/10/2021 Influenza Vaccine,unspecified Formulation 2019,05/27/2017,05/21/2015 Influenza, High-dose, Quadrivalent 09/10/2021 Influenza, high-dose, trivalent, PF 07/27/2018,0 04/27/2014 Family History Medical History Relation Name Comments Heart Disease Father Cancer Mother Relation Name Status Comments Father Mother Alive Social History Tobacco Use Types Packs/Day Years Used Date Smoking Tobacco: Former Cigarettes Q uit: 1985 Smokeless Tobacco: Never Alcohol Use Standard Drinks/Week Comments Yes 1 (1 standard drink = 0.6 oz pur e alcohol) weekly PHQ-2 Answer Date Recorded Total Score - Questions 1-9 0 12/25 Sex and Gender Information Value Date Recorded Sex Assigned at Not on file Legal Sex Male 10:31 AM MANAGER LANGUAGE Gender Identity Not on file Sexual Orientation Not on file Last Filed Vital Signs Vital Sign Reading Time Taken Comments Blood Pressure 124/82 01/05/2022 12:51 PM CDT Pulse 101 01/05/2022 12:51 PM CDT Temperature 36.3 ??C (97.3 ??F) 01/05/2022 12:51 PM C DT Respiratory Rate 18 01/05/2022 12:51 PM CDT Oxygen Saturation 99% 01/05/2022 12:51 PM CDT Inhaled Oxygen Concentration - - Weight 131.1 kg (289 lb) 01/05/2022 12:51 PM CDT Height 182.9 cm (6') 01/05/2022 12:51 PM CDT Body Mass Index 39.2 01/05/2022 12:51 PM CDT Plan of Treatment Health Maintenance Due Date Last Done Comments Hepatitis C Virus (HCV) Screening 1955 TdaP Immunization 1955 Colonoscopy 1998 Colorectal Cancer Screening 1998 Cologuard 2003 Immunochemical Fecal Occult Blood 2003 Pneumococcal Immunization (50+ years) (1 of 1 - PCV) 2003 Zoster Immunization (1 of 2) 2003 Influenza Immunization (#1) 04/27/202408/27, 06/27/2020, 07/27/2018, Additional history exists SARS-COV-2 Immunization ( season) 2024 09/10/2021, 10/19/2020, 09/21/2020 Respiratory Syncytial Virus (RSV) Immunization (Adult) (1 - 1-dose 75+ series) 2028 Hepatitis B Immunization Aged Out No longer eligible based on patient's age to complete this topic Meningococcal Immunization (ACWY) Aged Out No longer eligible based on patient's age to complete this topic Rotavirus Immunization Aged Out No lo nger eligible based on patient's age to complete this topic Insurance MEDICARE [place] [facility] [address] Care Teams Desizing Machine Operator Head End Relationship Specialty Start Date End Date Efrain Sales [address] [place] [address] PCP - General Family Medicine 09/05/21 Efrain Sales [address] [place] [address] Referring Provider Family Medicine 09/15/21
--- OUTSIDE RECORDS SUMMARY | 2024-09-18 11:37 | XMS_ITS | Referral Summary ---
Author Organization [facility] Address [address] [place] [address] Care Team Providers Care Music Minister Name Role Phone Unavailable Primary Care Provider Unavailabl e Source Comments [facility],non-owned Affiliates and Associated Physician Practices is amultiple site organization consisting of ambulatory clinics and hospital sitesin [place], [place], [place] and [place]. This disclosure is being madepursuant to the Care Everywhere program and may not contain all information available regarding this patient. Last updated 18.[facility] Allergies No known active allergies Medications * Be aware that medications may not be up to date on this document. Alwaysverify current medications with the patient. Medication Sig Dispensed Refills Start Date End Date Status BYSTOLIC 5 MG TABS Take 5 mg by mouth daily. Active ANDROGEL 1 % gel Apply to affected area daily. Active NEURONTIN 600 MG tablet Take 600 mg by mouth 3 times daily. Active VITAMIN C W/MANUELA HIPS PO Take by mouth. Active hydrochlorothiazide (HYDRODIURIL) 25 MG tablet Take 1 Tab by mouth daily. 90 1 08/24/2008 Active Social History Tobacco Use Types Packs/Day Years [...] Sign Reading Time Taken Comments Blood Pressure 115/66 02/26/2008 1:18 PM CDT Pulse 69 02/26/2008 1:18 PM CDT Temperature 35.8 ??C (96.4 ??F) 02/26/2008 10:15 AM C DT Respiratory Rate 18 02/26/2008 1:18 PM CDT Oxygen Saturation 98% 02/26/2008 1:18 PM CDT Inhaled Oxygen Concentration - - Weight 131.5 kg (290 lb) 02/25/2008 9:50 AM CDT Height 182.9 cm (6') 02/25/2008 9:50 AM CDT Body Mass Index 39.33 02/25/2008 9:50 AM CDT Plan of Treatment Not on file GREGG CHURCH Personal/Family 1955 [address] [place] [address]
--- OUTSIDE RECORDS SUMMARY | 2024-09-18 11:37 | XMS_ITS | Encounter Summary ---
Author Organization [facility] Address [address] [place] [address] Care Team Providers Care Diesel Truck Technician Name Role Phone Unavailable Primary Care Provider Unavailabl e Encounter Details Date Type Department Care Team (Late st Contact Info) Description 06/04/2008 [facility] Outpatient Visit [facility] [address] [place] [address] [place] [address] [place] [id number] Social History Tobacco Use Types Packs/Day Years [...] on file documented as of this encounter Visit Diagnoses Not on filedocumented in this encounter
--- OUTSIDE RECORDS SUMMARY | 2024-09-18 11:37 | XMS_ITS | Clinical Summary ---
Author Organization [facility] Address [address] [place] [address] Care Team Providers Care Cook Chef Name Role Phone Unavailable Primary Care Provider Unavailabl e Source Comments [facility],non-owned Affiliates and Associated Physician Practices is amultiple site organization consisting of ambulatory clinics and hospital sitesin [place], [place], [place] and [place]. This disclosure is being madepursuant to the Care Everywhere program and may not contain all information available regarding this patient. Last updated 18.[facility] Allergies No known active allergies Medications * [...] 02/25/2008 9:50 AM CDT Plan of Treatment Health Maintenance Due Date Last Done Comments COLOGUARD (AGES 45-75) - COLON CA SCREENING [address] COLONOGRAPHY - COLON CA SCREENING 1955 FIT - COLON CA SCREENING 1955 FLEX SIG - COLON CA SCREENING 1955 LIPID TESTING 1955 HEPATITIS C SCREENING 09/16/1971 DTAP/TDAP/TD VACCINES (1 - Tdap) 1972 PNEUMOCOCCAL VACCINE 50+ (1 of 1 - PCV) 2003 ZOSTER VACCINE (1 of 2) 2003 COLONOSCOPY - COLON CA SCREENING 02/25/2018 02/26/2008 (Previously completed) Colorectal Cancer Screening 02/25/2018 AAA SCREENING 2018 COVID-19 VACCINE (2 - season) 2024 09/10/2021 INFLUENZA VACCINE (#1) 2024 8, 05/27/2017, 05/21/2015, Additional history exists DEPRESSION SCREENING 08/27/2024 MEDICARE AWV ? CALENDAR YEAR 2024 Respiratory Syncytial Virus (RSV) Vaccine Pt: or over 60 yrs (1 - 1-dose 75+ series) 2028 HEPATITIS B VACCINE Aged Out No longe r eligible based on patient's age to complete this topic HIB VACCINE Aged Out No longer eligi ble based on patient's age to complete this topic HPV VACCINE Aged Out No longer eligi ble based on patient's age to complete this topic MENINGOCOCCAL (Group B) VACCINE Aged Out No longer eligible based on patient's age to complete this topic MENINGOCOCCAL VACCINE Aged Out No anitra jerry eligible based on patient's age to complete this topic GREGG CHURCH Personal/Family 1955 [address] [place] [address]
--- OUTSIDE RECORDS SUMMARY | 2024-09-18 11:37 | XMS_ITS | Patient Health Summary ---
Author Organization [facility] [employer] Address [address] [place] [address] Care Team Providers Care Hand Button Splitter Name Role Phone Unavailable Primary Care Provider Unavailabl e Note from [facility],non-owned Affiliates and Associated Physician Practices is amultiple site organization consisting of ambulatory clinics and hospital sitesin [place], [place], [place] and [place]. This disclosure is being madepursuant to the Care Everywhere program and may not contain all information available regarding this patient. Last updated 18.[facility] [employer] Allergies No known active allergies Medications * Be aware that medications may not be up to date on this document. Alwaysverify current medications with the patient. * BYSTOLIC 5 MG TABS Take 5 mg by mouth daily. * ANDROGEL 1 % gel Apply to affected area daily. * NEURONTIN 600 MG tablet Take 600 mg by mouth 3 times daily. * VITAMIN C W/MANUELA HIPS PO Take by mouth. * hydrochlorothiazide (HYDRODIURIL) 25 MG tablet(Started 08/24/2008) Take 1 Tab by mouth daily. 1 refill left Social History Tobacco Use Types Packs/Day Years [...] Mass Index 39.33 02/25/2008 9:50 AM CDT Procedures * DERMATOPATHOLOGY(Performed 03/14/2022) * XR CHEST 2VW(Performed 02/26/2008) Performed for Malignant Neoplasm of Other and Unspecified Testis (HCC) * GROSS + MICRO EXAM(Performed 02/26/2008) Performed for Hemorrhage of Rectum and Anus * GROSS + MICRO EXAM(Performed 03/21/2000) Results * DERMATOPATHOLOGY (03/14/2022 12:00 AM CDT) Case Report Dermatopathology Report ? Case: [id number] ? Authorizing Provider: ??Papo Escobar MD ?Collected: ? 03/14/2022 12:00 AM ? Ordering Location: ? [facility] DermPath Lab ?Received: ?03/16/2022 07:44 AM ? Pathologist: ? Dianna Shaw MD ? Specimen: ?Skin, left mid back ? 2 2:53 PM CDT DERMATOPATHOLOGY LABORATORY Final Diagnosis Specimen A. SKIN, left mid back: BASAL CELL CARCINOMA, NODULAR TYPE; PIGMENTED (C44.519) (see microscopic description) 2 2:53 PM CDT DERMATOPATHOLOGY LABORATORY Clinical History BCCA vs. MM. Path# [id number] 2 2:53 PM CDT DERMATOPATHOLOGY LABORATORY Gross Description Specimen A: Received is one formalin filled container labeled with the patient's name and designated left mid back. The specimen consists of a shave biopsy measuring [id number]. Jar 0. 2 2:53 PM CDT DERMATOPATHOLOGY [...] characteristic determined by the Dermatopathology Laboratory at [facility], directed by Dr. Jeferson Golden. These tests need not be, and therefore are not, approved by the [place] Food and Drug Administration. The tests are used for clinical purposes. Billing Codes Specimen Charges Stain Charges 63737 1 2 2:53 PM CDT DERMATOPATHOLOGY LABORATORY Embedded Images 2 2:53 PM CDT DERMATOPATHOLOGY LABORATORY Pathology/Cytolog y TISSUE SPECIMEN FROM SKIN / Unknown 03/14/2022 03/16/2022 7:44 AM CDT Papo Escobar MD LAB - PATHOLOGY/CYTO LOGY ORDERABLES DERMATOPATHOLOGY LABORATORY [facility] - Department of Dermatology [address], [address] [phone] * XR CHEST PA AND LATERAL (02/26/2008 2:20 PM CDT) Anatomical Region Laterality Modality Chest Radiographic Silvia ging 02/26/2008 2:23 PM CDT Narrative 02/26/2008 2:31 PM CDT Exam: Chest HISTORY: Testicular cancer FINDINGS: PA and lateral views the chest compared to exam on 01/22/2007 shows no change. The heart is not enlarged. The lung brath are clear. CONCLUSION: No active disease Procedure Note Rosalio Navarro MD - 02/26/2008 Exam: Chest HISTORY: Testicular cancer FINDINGS: PA and lateral views the chest compared to exam on 01/22/2007 shows no change. The heart is not enlarged. The lung barth are clear. CONCLUSION: No active disease Emiliano Hernandez MD DIAGNOSTIC IMAGING O RDERABLES * GROSS + MICRO EXAM (02/26/2008 12:06 PM CDT) Only the most recent of2 resultswithin the time period is included. Pre-Op Diagnosis Rectal bleeding, colon screening [facility] Post-Op Diagnosis Colon polyps [facility] Clinical Findings None given [facility] Gross Description [facility] Comment: There are three portions received in Histochoice described below each submitted entirely in separate screened cassettes that are designated according to their respective specimen container labels. ?JAL/ME/db BLOCK ?A - Descending colon polyp - 4 mm velasco/brown polypoid tissue fragment, levels ?B - Sigmoid colon polyp @ 35 cm - 1.4 cm velasco/brown polypoid tissue fragment, inked, bisected, levels ?C - Rectal polyp x 3 - three velasco polypoid tissue fragments each 3 mm greatest dimension, levels Grossed By Raul Elias M.D. [facility] Microscopic Examination [facility] Comment: Microscopic findings corroborate the diagnosis below. ? NCM/db Diagnosis [facility] Comment: Descending colon, endoscopic biopsy ?Benign fragments of colonic mucosa with mild regenerative/ ?reparative mucosal changes ?Adenomatous change not demonstrated Sigmoid colon polyp @ 35 cm, polypectomy ?Tubular adenoma Rectal polyps x 3, endoscopic biopsies ?Hyperplastic polyps (3) Read by Vivian Doshi M.D. [facility] Released by VIVIAN DOSHI [facility] 02/26/2008 12:0 6 PM CDT 02/26/2008 4:02 PM CDT Balbir Craig MD LAB - PATHOLOGY/CYTO LOGY ORDERABLES [address] [address]
--- OUTSIDE RECORDS SUMMARY | 2024-09-18 11:37 | XMS_ITS | Clinical Summary ---
Author Organization [facility] Address [address] [place] [address]. [place] [address] [place] [address] Care Team Providers Care Supervisor Gate Services Name Role Phone Diane Thomas MD Primary Care Provider [phone] Social History Tobacco Use Types Packs/Day Years Used Date Smoking Tobacco: Never Assessed Sex and Gender Information Value Date Recorded Sex Assigned at Not on file Legal Sex Male 2:10 PM CDT Gender Identity Not on file Sexual Orientation Not on file Plan of Treatment Health Maintenance Due Date Last Done Comments Colorectal Cancer Screening Colonoscopy (10 Years) 1955 Hepatitis C 1971 DTaP, Tdap and Td Vaccines (1 - Tdap) 1972 Annual Medicare Wellness Visit 2018 Pneumococcal Vaccine: 65+ Years (1 of 1 - PCV) 2018 COVID-19 Vaccine (3 - season) 2024 04/07/2023, 09/10/2021 Influenza Adult (#1) 2024 06/27/2020, 07/27/2018, 05/27/2017, Additional history exists Zoster Vaccines Completed 06/30/2023, 04/21/2023 RSV Immunization or 60+ Years Completed 08/18/2023 Meningococcal Vaccine Aged Out No anitra jerry eligible based on patient's age to complete this topic RSV Immunizations Under 20 Months Aged Out No longer eligible based on patient's age to complete this topic Medical Devices Implanted Type [employer] Device Identifier Shelf Expiration Date Model / Serial / Lot Lead Implant- 3 Implanted:2022 (Quantity not on file) Lead Implant NEVRO [id number] [id number] / / Lead Implant- 3 Implanted:2022 (Quantity not on file) Lead Implant NEVRO [id number] [id number] / / Stimulator Implant- 3 Implanted:2022 (Quantity not on file) Stimulator Implant NEVRO [id number] / [id number] / Description:PERCUTANEOUS ALEC DS , FOLLOW THE SCAN CONDITIONS IN THE MRI TECHNICAL MANUAL FOR PERCUTANEOUS LEADS AND BODY PART BEING IMAGED Insurance [facility] Care Teams Supervisor Gate Services Relationship Specialty Start Date End Date Diane Thomas MD [address] [place] [address] PCP - General FAMILY PRACTICE 02/14/24
== END 2024-09-15 07:48 | disposition home or self-care (01) ==
PROVIDERS: PCP Family Medicine; Visit Provider Student in an Organized Health Care Education/Training Program
DX: R53.83 Other fatigue (principal); E11.42 Type 2 diabetes mellitus with diabetic polyneuropathy; G60.8 Other hereditary and idiopathic neuropathies; E78.5 Hyperlipidemia, unspecified; I10 Essential (primary) hypertension; G47.33 Obstructive sleep apnea (adult) (pediatric)
CPT/HCPCS: 36415; 80053; 80061; 83036; 84403; 84439; 84443; 85025; 85055

== ENCOUNTER 2024-09-15 08:15 | Outpatient (CLI) | payer MEDICARE, SELFPAY ==
--- NOTE | ~2024-09-15 | US_ITS ---
EXAMINATION: US aorta [facility] DATE: 09/15/2024 08:31 INDICATION: Abdominal aortic aneurysm screening. TECHNIQUE: Grayscale, color Doppler, and pulsed Doppler images of the aorta and common iliac arteries were obtained. COMPARISON: Lumbar spine MRI 02/03/2023 FINDINGS: The aorta is normal in caliber. The right common iliac artery is normal in caliber. The left common i liac artery is normal in caliber. IMPRESSION: 1. No abdominal aortic aneurysm. Reviewed, dictated and finalized at location [] ING OFFICER
== END 2024-09-15 08:16 | disposition home or self-care (01) ==
LOC: MICIMG 08:15
PROVIDERS: PCP Family Medicine; Visit Provider Student in an Organized Health Care Education/Training Program
DX: Z13.6 Encounter for screening for cardiovascular disorders (principal); Z72.0 Tobacco use
CPT/HCPCS: 76706

== ENCOUNTER 2024-10-22 13:34 | Outpatient (CLI) | payer MEDICARE, SELFPAY ==
--- OUTSIDE RECORDS SUMMARY | 2024-10-22 15:19 | XMS_ITS | Referral Summary ---
Author Organization [facility] Address [address] [place] [address] Care Team Providers Care Hospitality Specialist Name Role Phone Unavailable Primary Care Provider Unavailabl e Source Comments [facility] [employer]),non-owned Affiliates and Associated Physician Practices is amultiple site organization consisting of ambulatory clinics and hospital sitesin [place], [place], [place] and [place]. This disclosure is being madepursuant to the Care Everywhere program and may not contain all information available regarding this patient. Last updated 18.[facility] [employer] Allergies No known active allergies Medications * [...] 69 02/26/2008 1:18 PM CDT Temperature 35.8 C (96.4 F) 02/26/2008 10:15 AM CDT Respiratory Rate 18 02/26/2008 1:18 PM CDT Oxygen Saturation 98% 02/26/2008 1:18 PM CDT Inhaled Oxygen Concentration - - Weight 131.5 kg (290 lb) 02/25/2008 9:50 AM CDT Height 182.9 cm (6') 02/25/2008 9:50 AM CDT Body Mass Index 39.33 02/25/2008 9:50 AM CDT Plan of Treatment Not on file GREGG CHURCH Personal/Family 1955 [address] [place] [address]
--- OUTSIDE RECORDS SUMMARY | 2024-10-22 15:19 | XMS_ITS | Patient Health Record ---
Author Organization [facility] Address [address] [id number] Care Team Providers Care Cras Name Role Phone Marko Miller Unavailable [phone] REASON FOR REFERRAL No Information MEDICATIONS Medication SIG (Take, Route, Frequency, Duration) Notes Start Date End Date Status Potassium Chloride ER 20 MEQ 1 tablet Or ally once daily for 30 days Active Lasix 40 MG 1 tablet Orally Once a day for 30 days Active Vascepa 1 GM 2 capsules with meal s Orally Twice a day for 30 days Active Bystolic 5MG 1 tablet Orally Once a day for 30 days Active Bystolic 5 MG TAKE 1 TABLET DAILY Active Neurontin 600 MG 1 tablet Orally Thre e times a day for 30 days Active hydroCHLOROthiazide 25MG 1 tablet Orally Once a day for 30 days Active metFORMIN HCl ER 750 MG 1 tablet with ev ening meal Orally twice a day for 30 day(s) Active hydroCHLOROthiazide 25 MG TAKE 1 TABLET DAILY Active SOCIAL HISTORY Tobacco Use: Social History Observation Description Date Details (start date - stop date) Former Smoker NA - NA Sex Assigned At : Social History Observation Description Sex Assigned At Unknown Tobacco Use/Smoking Question Answer Notes Are you a former smoker How long has it been since you last smoked? > 10 years Alcohol Screen Question Answer Notes Did you have a drink contain ing alcohol in the past year? Yes How often did you have 6 or more drinks on one occasion in the past year? Never (0 point) How many drinks did you have on a typical day when you were drinking in the past year? 1 or 2 drinks (0 point) How often did you have a dri nk containing alcohol in the past year? 2 to 4 times a month (2 points) Points 2 Interpretation Negative PROBLEMS Problem Type ICD Code Onset Dates Problem Status W/U Status Risk SNOMED Code Notes Problem Essential hypertension, benign (401.1) Active confirmed Benign essent ial hypertension (9195568) Problem Other and unspecified hyperlipidemia (272.4) Active confirmed Hyperlipidemia (27648302) Problem Impaired fasting glucose (790.21) Active confirmed Impaired fa sting glucose (873411644) Problem Malignant neoplasm of other and unspecified testis (186.9) Active confirmed Malignant randy or of testis (197410390) Problem Other testicular hypofunction (257.2) Active confirmed Testicular hypofunction (646699608) Problem Unspecified hereditary and idiopathic peripheral neuropathy (356.9) Active confirmed Hereditary peripheral neuropathy (54497510) Problem Benign neoplasm of colon (211.3) Active confirmed Benign neop lasm of colon (29584361) Problem Hypersomnia with sleep apnea, unspecified (780.53) Active confirmed Hypersomnia wit h sleep apnea (39292176) Problem Diabetes mellitus without mention of complication, type II or unspecified type, not stated as uncontrolled (250.00) Active confirmed Type II diabete s mellitus without complication (147832064) Problem Essential (primary) hypertension (I10) Active confirmed Essential hypertension (22948496) Problem Other hyperlipidemia (E78.4) Active confirmed Hyperlipidemia (03860796) Problem Malignant neoplasm of left testis, unspecified whether descended or undescended (C62.92) Active confirmed Primary maligna nt neoplasm of testis (91183414) Problem Testicular hypofunction (E29.1) Active confirmed Testicular hypofunction (579281644) Problem Hereditary and idiopathic neuropathy, unspecified (G60.9) Active confirmed Hereditary disorder of nervous system (190811675) Problem Polyp of colon (K63.5) Active confirmed Polyp of colon (31567797) Problem Sleep apnea, unspecified (G47.30) Active confirmed Sleep apnea (18315989) Problem Edema, unspecified (R60.9) Active confirmed Edema (62987784) Problem Type 2 diabetes mellitus without complications (E11.9) Active confirmed Type II diabete s mellitus without complication (548226517) Problem Nonspecific elevation of levels of transaminase and lactic acid dehydrogenase [LDH] (R74.0) Active confirmed Elevated level s of transaminase & lactic acid dehydrogenase (954284953) Problem 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) Active confirmed 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) Problem Radiculopathy, lumbosacral region (M54.17) Active confirmed Lumbosacral radiculopathy (5721849) Problem Cervicalgia (M54.2) Active confirmed Cervicalgia (01540678) Problem Other hyperlipidemia (E78.49) Active confirmed Hyperlipidemia (43587438) Problem Encounter for preprocedural cardiovascular examination (Z01.810) Active confirmed Preoperative cardiovascular examination (648477842) PLAN OF TREATMENT Pending Test Test Name Order Date MRI : Lumbosacral Spines 03/22/2017 Hemoglobin A1c 03/03/2019 Hemoglobin A1c 08/03/2016 FLU SHOT BELOW AGE 65 05/06/2015 FLU SHOT BELOW AGE 65 08/13/2012 FLU SHOT BELOW AGE 65 05/22/2014 FLU SHOT BELOW AGE 65 08/08/2018 FLU SHOT BELOW AGE 65 04/22/2012 FLU SHOT BELOW AGE 65 05/19/2013 FLU SHOT BELOW AGE 65 06/18/2014 FLU SHOT BELOW AGE 65 08/13/2015 FLU SHOT BELOW AGE 65 07/30/2014 FLU SHOT BELOW AGE 65 10/30/2014 FLU SHOT BELOW AGE 65 07/11/2019 FLU SHOT BELOW AGE 65 05/21/2012 FLU SHOT BELOW AGE 65 08/17/2011 FLU SHOT BELOW AGE 65 06/05/2016 FLU SHOT BELOW AGE 65 02/01/2015 FLU SHOT BELOW AGE 65 06/22/2017 FLU SHOT BELOW AGE 65 12/01/2011 FLU SHOT BELOW AGE 65 04/16/2014 EKG 09/26/2018 URINALYSIS, COMPLETE 04/16/2014 CBC (INCLUDES DIFF/PLT) 08/03/2016 CBC (INCLUDES DIFF/PLT) 03/02/2011 CBC (INCLUDES DIFF/PLT) 04/16/2014 CBC (INCLUDES DIFF/PLT) 05/19/2013 VITAMIN B-12 AND FOLATE 04/16/2014 COMPREHENSIVE METABOLIC PANEL 04/22/2012 COMPREHENSIVE METABOLIC PANEL 08/03/2016 COMPREHENSIVE METABOLIC PANEL 03/02/2011 COMPREHENSIVE METABOLIC PANEL 05/19/2013 COMPREHENSIVE METABOLIC PANEL 04/16/2014 LIPID PROFILE 04/22/2012 LIPID PROFILE 08/03/2016 LIPID PROFILE 03/02/2011 LIPID PROFILE 05/19/2013 LIPID PROFILE 05/21/2012 LIPID PROFILE 04/16/2014 TETANUS SHOT 05/06/2015 TETANUS SHOT 08/13/2015 Insurance Providers Payer Name Payer Address Payer Phone Subscriber Number Group Number Insured Name Patient Relationship to Insured Coverage Start Date Coverage End Date [facility] [address] [address] [place] [address] [id number] Rah Yanez Self - patient is the insured MEDICAL (GENERAL) HISTORY Medical History History ICD Code hypertension testicular cancer depression neuropathy hypogonadism colonic polyps vitamin D deficiency diabetes RODRIGO hyperlipidemia elevated ALT/AST thyroid nodule coloitis Surgical History Surgery Date(Month/Year) tonsillectomy vasectomy orchiectomy
--- OUTSIDE RECORDS SUMMARY | 2024-10-22 15:19 | XMS_ITS | Encounter Summary ---
Author Organization [facility] Address [address] [place] [address] Care Team Providers Care Center Specialists Name Role Phone Unavailable Primary Care Provider Aggie e Encounter Details Date Type Department Care Team (Late st Contact Info) Description 03/16/2022 Lab Requisition [facility] DermPath Lab [address] [facility] [place] [address] Papo Escobar MD [address] [facility] [address] [place] [address] Social History Tobacco Use Types Packs/Day [...] 12:00 AM CDT) Case Report Dermatopathology Report Case: [id number] Authorizing Provider: aPpo Escobar MD Collected: 03/14/2022 12:00 AM Ordering Location: [facility] Lab Received: 03/16/2022 07:44 AM Pathologist: Dianna Shaw MD Specimen: Skin, left mid back 2:53 PM CDT DERMATOPATHOLOGY LABORATORY Final Diagnosis Specimen A. SKIN, left mid back: BASAL CELL CARCINOMA, NODULAR TYPE; PIGMENTED (C44.519) (see microscopic description) 2 2:53 PM CDT DERMATOPATHOLOGY LABORATORY Clinical History BCCA vs. MM. Path# [id number] 2 2:53 PM CDT DERMATOPATHOLOGY LABORATORY Gross Description Specimen A: Received is one formalin filled container labeled with the patient's name and designated left mid back. The specimen consists of a shave biopsy measuring [id number]. Jar 0. 2 2:53 PM CDT DERMATOPATHOLOGY [...] characteristic determined by the Dermatopathology Laboratory at [facility], directed by Dr. Jeferson Golden. These tests need not be, and therefore are not, approved by the [place] Food and Drug Administration. The tests are used for clinical purposes. Billing Codes Specimen Charges Stain Charges 92276 1 2 2:53 PM CDT DERMATOPATHOLOGY LABORATORY Embedded Images 2 2:53 PM CDT DERMATOPATHOLOGY LABORATORY Pathology/Cytolog y TISSUE SPECIMEN FROM SKIN / Unknown 03/14/2022 03/16/2022 7:44 AM CDT Papo Escobar MD LAB - PATHOLOGY/CYTO LOGY ORDERABLES DERMATOPATHOLOGY LABORATORY [facility] - Department of Dermatology [facility] Medicine [address] [place] [address], [address] [place] [address], [facility] [phone] documented in this encounter Visit Diagnoses Not on filedocumented in this encounter
--- OUTSIDE RECORDS SUMMARY | 2024-10-22 15:19 | XMS_ITS | Patient Health Summary ---
Author Organization [facility] Address [address] [place] [address] Care Team Providers Care Apn Name Role Phone Unavailable Primary Care Provider Unavailabl e Note from [facility],non-owned Affiliates and Associated Physician Practices is amultiple site organization consisting of ambulatory clinics and hospital sitesin [place], [place], [place] and [place]. This disclosure is being madepursuant to the Care Everywhere program and may not contain all information available regarding this patient. Last updated 18.[facility] Allergies No known active allergies Medications * [...] AM CDT) Case Report Dermatopathology Report Case: [id number] Authorizing Provider: Papo Escobar MD Collected: 03/14/2022 12:00 AM Ordering Location: [facility] DermPath Lab Received: 03/16/2022 07:44 AM Pathologist: Dianna Shaw MD Specimen: Skin, left mid back 2 2:53 PM CDT DERMATOPATHOLOGY LABORATORY Final Diagnosis Specimen A. SKIN, left mid back: BASAL CELL CARCINOMA, NODULAR TYPE; PIGMENTED (C44.519) (see microscopic description) 2 2:53 PM CDT DERMATOPATHOLOGY LABORATORY Clinical History BCCA vs. MM. Path# [id number] 2 2:53 PM CDT DERMATOPATHOLOGY LABORATORY Gross Description Specimen A: Received is one formalin filled container labeled with the patient's name and designated left mid back. The specimen consists of a shave biopsy measuring [id number]. Jar 0. 2:53 PM CDT DERMATOPATHOLOGY LABORATORY Microscopic Description Specimen A. SKIN, left mid back: Within the dermis there are aggregates of basaloid cells with a high nuclear to cytoplasmic ratio and peripheral palisading. There is abundant melanin. 2:53 PM CDT DERMATOPATHOLOGY LABORATORY Disclaimer An external and internal positive and negative controls are appropriate for the histochemical, immunohistochemical and immunofluorescence stain(s) in this case (if any), except where stated explicitly. The performance characteristics of the stain(s) cited in this report were developed and its performance characteristic determined by the Dermatopathology Laboratory at [facility], directed by Dr. Jeferson Golden. These tests need not be, and therefore are not, approved by the [place] Food and Drug Administration. The tests are used for clinical purposes. Billing Codes Specimen Charges Stain Charges 40810 1 2 2:53 PM CDT DERMATOPATHOLOGY LABORATORY Embedded Images 2 2:53 PM CDT DERMATOPATHOLOGY LABORATORY Pathology/Cytolog y TISSUE SPECIMEN FROM SKIN / Unknown 03/14/2022 03/16/2022 7:44 AM CDT Papo Escobar MD LAB - PATHOLOGY/CYTO LOGY ORDERABLES DERMATOPATHOLOGY LABORATORY [facility] - Department of Dermatology [address], [address] [phone] * XR CHEST PA AND LATERAL (02/26/2008 2:20 PM CDT) Anatomical Region Laterality Modality Chest Radiographic Silvia ging 02/26/2008 2:23 PM CDT Narrative 02/26/2008 2:31 PM CDT Exam: Chest HISTORY: Testicular cancer FINDINGS: PA and lateral views the chest compared to exam on 01/22/2007 shows no change. The heart is not enlarged. The lung barth are clear. CONCLUSION: No active disease Procedure [...] included. Pre-Op Diagnosis Rectal bleeding, colon screening [facility] Post-Op Diagnosis Colon polyps [facility] Clinical Findings None given [facility] Gross Description [facility] Comment: There are three portions received in Histochoice described below each submitted entirely in separate screened cassettes that are designated according to their respective specimen container labels. JAL/ME/db BLOCK A - Descending colon polyp - 4 mm velasco/brown polypoid tissue fragment, levels B - Sigmoid colon polyp @ 35 cm - 1.4 cm velasco/brown polypoid tissue fragment, inked, bisected, levels C - Rectal polyp x 3 - three velasco polypoid tissue fragments each 3 mm greatest dimension, levels Grossed By Raul Elias M.D. [facility] Microscopic Examination [facility] Comment: Microscopic findings corroborate the diagnosis below. NCM/db Diagnosis [facility] Comment: Descending colon, endoscopic biopsy Benign fragments of colonic mucosa with mild regenerative/ reparative mucosal changes Adenomatous change not demonstrated Sigmoid colon polyp @ 35 cm, polypectomy Tubular adenoma Rectal polyps x 3, endoscopic biopsies Hyperplastic polyps (3) Read by Vivian Doshi M.D. [facility] Released by VIVIAN DOSHI, [facility] 02/26/2008 12:0 6 PM CDT 02/26/2008 4:02 PM CDT Balbir Craig MD LAB - PATHOLOGY/CYTO LOGY ORDERABLES Performing Organization Address City/State/[facility] Co de Phone Number [address] [address]
--- OUTSIDE RECORDS SUMMARY | 2024-10-22 15:19 | XMS_ITS | Encounter Summary ---
Author Organization [facility] Address [address] [facility] [place] [address] Care Team Providers Care Manager Of Recruiting Name Role Phone Unavailable Primary Care Provider Unavailabl e Encounter Details Date Type Department Care Team (Late st Contact Info) Description 06/04/2008 [facility] Outpatient Visit [facility] [address] [place] [address] [place] [address] [place] [address] Social History Tobacco Use Types Packs/Day [...]
--- OUTSIDE RECORDS SUMMARY | 2024-10-22 15:19 | XMS_ITS | Clinical Summary ---
Author Organization [facility] Address [address] [place] [address] Care Team Providers Care Line Construction Engineer Name Role Phone Unavailable Primary Care Provider Unavailabl e Source Comments [facility],non-owned Affiliates and Associated Physician Practices is amultiple site organization consisting of ambulatory clinics and hospital sitesin [place], [place], [place] and [place]. This disclosure is being madepursuant to the Care Everywhere program and may not contain all information available regarding this patient. Last updated 18.[facility] Allergies No known active allergies Medications * [...] history exists DEPRESSION SCREENING 08/27/2024 MEDICARE AWV CALENDAR YEAR 2024 Respiratory Syncytial Virus (RSV) [...] topic GREGG CHURCH Personal/Family 1955 [address] [place] [address]
== END 2024-10-22 13:35 | disposition home or self-care (01) ==
PROVIDERS: PCP Family Medicine; Visit Provider Psychiatry & Neurology Neurology
DX: R53.1 Weakness (principal); Z85.47 Personal history of malignant neoplasm of testis; Z92.3 Personal history of irradiation; E11.9 Type 2 diabetes mellitus without complications; G60.8 Other hereditary and idiopathic neuropathies; G93.0 Cerebral cysts
CPT/HCPCS: 95886; 95910

== ENCOUNTER 2025-06-25 01:37 | Day surgery (SDC) | payer MEDICARE, SELFPAY ==
[2025-06-15 13:34] VITALS: BMI 36.6
--- OUTSIDE RECORDS SUMMARY | 2025-06-25 01:40 | XMS_ITS | Encounter Summary ---
Author Organization [facility] Address [address] [place] [address] Care Team Providers Care Bulk Station Agent Name Role Phone Unavailable Primary Care Provider Unavailabl e Encounter Details Date Type Department Care Team (Late st Contact Info) Description 03/16/2022 Lab Requisition [facility] [address] [place] [address] Papo Escobar MD [address] [place] [id number] Social History Tobacco Use Types Packs/Day Years Used Date Smoking Tobacco: Former Cigarettes Q uit: 08/27/1984 Alcohol Use Standard Drinks/Week Comments Yes 0 (1 standard drink = 0.6 oz pur e alcohol) occasional Sex and Gender Information Value Date Recorded Sex Assigned at Not on file 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 Gender Identity Not on file Sexual Orientation Not on file documented as of this encounter Plan of Treatment Not on file documented as of this encounter Procedures Procedure Name Priority Date/Time Associated Diagnosis Comments DERMATOPATHOLOGY Routine 03/14/2022 12:0 0 AM CDT documented in this encounter Results * DERMATOPATHOLOGY (03/14/2022 12:00 AM CDT) Case Report Dermatopathology Report Case: [id number] Authorizing Provider: Papo Escobar MD Collected: 03/14/2022 12:00 AM Ordering Location: [facility] Received: 03/16/2022 07:44 AM Pathologist: Dianna Shaw MD Specimen: Skin, left mid back 2 2:53 PM CDT DERMATOPATHOLOGY LABORATORY Final Diagnosis Specimen A. SKIN, left mid back: BASAL CELL CARCINOMA, NODULAR TYPE; PIGMENTED (C44.519) (see microscopic description) 2 2:53 PM CDT DERMATOPATHOLOGY LABORATORY at 1453 CDT Clinical History BCCA vs. MM. Path# [id number] 2 2:53 PM CDT DERMATOPATHOLOGY LABORATORY Gross Description Specimen A: Received is one formalin filled container labeled with the patient's name and designated left mid back. The specimen consists of a shave biopsy measuring [id number]. Jar 0. 2 2:53 PM CDT DERMATOPATHOLOGY [...] characteristic determined by the Dermatopathology Laboratory at [facility], directed by Dr. Jeferson Golden. These tests need not be, and therefore are not, approved by the [place] Food and Drug Administration. The tests are used for clinical purposes. Billing Codes Specimen Charges Stain Charges 15024 1 2 2:53 PM CDT DERMATOPATHOLOGY LABORATORY Embedded Images 2 2:53 PM CDT DERMATOPATHOLOGY LABORATORY Pathology/Cytolog y TISSUE SPECIMEN FROM SKIN / Unknown 03/14/2022 03/16/2022 7:44 AM CDT us Papo Escobar MD LAB - PATHOLOGY/CYTOLOGY ORDER KEYONNA Final Result DERMATOPATHOLOGY LABORATORY [facility] - Department of Dermatology [address], [address] [phone] documented in this encounter Visit Diagnoses Not on filedocumented in this encounter
--- OUTSIDE RECORDS SUMMARY | 2025-06-25 01:40 | XMS_ITS | Patient Health Record ---
Author Organization [facility] Address [address] [id number] Care Team Providers Care It Support Technician Name Role Phone Marko Miller Unavailable [phone] REASON FOR REFERRAL No Information MEDICATIONS Medication [...] (401.1) Active confirmed Benign essent ial hypertension (8070835) Problem Other and unspecified hyperlipidemia (272.4) Active confirmed Hyperlipidemia (09950630) Problem Impaired fasting glucose (790.21) Active confirmed Impaired fa sting glucose (506614527) Problem Malignant neoplasm of other and unspecified testis (186.9) Active confirmed Malignant randy or of testis (302315972) Problem Other testicular hypofunction (257.2) Active confirmed Testicular hypofunction (976408435) Problem Unspecified hereditary and idiopathic peripheral neuropathy (356.9) Active confirmed Hereditary peripheral neuropathy (33048325) Problem Benign neoplasm of colon (211.3) Active confirmed Benign neop lasm of colon (50780226) Problem Hypersomnia with sleep apnea, unspecified (780.53) Active confirmed Hypersomnia wit h sleep apnea (05533320) Problem Diabetes mellitus without mention of complication, type II or unspecified type, not stated as uncontrolled (250.00) Active confirmed Type II diabete s mellitus without complication (521745683) Problem Essential (primary) hypertension (I10) Active confirmed Essential hypertension (37995631) Problem Other hyperlipidemia (E78.4) Active confirmed Hyperlipidemia (37365406) Problem Malignant neoplasm of left testis, unspecified whether descended or undescended (C62.92) Active confirmed Primary maligna nt neoplasm of testis (76562487) Problem Testicular hypofunction (E29.1) Active confirmed Testicular hypofunction (146865264) Problem Hereditary and idiopathic neuropathy, unspecified (G60.9) Active confirmed Hereditary disorder of nervous system (631961067) Problem Polyp of colon (K63.5) Active confirmed Polyp of colon (37628766) Problem Sleep apnea, unspecified (G47.30) Active confirmed Sleep apnea (79123972) Problem Edema, unspecified (R60.9) Active confirmed Edema (49405958) Problem Type 2 diabetes mellitus without complications (E11.9) Active confirmed Type II diabete s mellitus without complication (938174491) Problem Nonspecific elevation of levels of transaminase and lactic acid dehydrogenase [LDH] (R74.0) Active confirmed Elevated level s of transaminase & lactic acid dehydrogenase (843898135) Problem 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) Active confirmed 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) Problem Radiculopathy, lumbosacral region (M54.17) Active confirmed Lumbosacral radiculopathy (7191613) Problem Cervicalgia (M54.2) Active confirmed Cervicalgia (15899692) Problem Other hyperlipidemia (E78.49) Active confirmed Hyperlipidemia (65954450) Problem Encounter for preprocedural cardiovascular examination (Z01.810) Active confirmed Preoperative cardiovascular examination (066864510) PLAN OF TREATMENT Pending Test Test Name Order Date MRI : Lumbosacral Spines 03/22/2017 Hemoglobin A1c 08/03/2016 Hemoglobin A1c 03/03/2019 FLU SHOT BELOW AGE 65 04/16/2014 FLU SHOT BELOW AGE 65 08/13/2012 FLU SHOT BELOW AGE 65 05/06/2015 FLU SHOT BELOW AGE 65 04/22/2012 FLU SHOT BELOW AGE 65 05/22/2014 FLU SHOT BELOW AGE 65 08/08/2018 FLU SHOT BELOW AGE 65 05/19/2013 FLU SHOT BELOW AGE 65 06/18/2014 FLU SHOT BELOW AGE 65 08/13/2015 FLU SHOT BELOW AGE 65 07/30/2014 FLU SHOT BELOW AGE 65 05/21/2012 FLU SHOT BELOW AGE 65 10/30/2014 FLU SHOT BELOW AGE 65 07/11/2019 FLU SHOT BELOW AGE 65 08/17/2011 FLU SHOT BELOW AGE 65 06/05/2016 FLU SHOT BELOW AGE 65 02/01/2015 FLU SHOT BELOW AGE 65 12/01/2011 FLU SHOT BELOW AGE 65 06/22/2017 EKG 09/26/2018 URINALYSIS, COMPLETE 04/16/2014 CBC (INCLUDES DIFF/PLT) 03/02/2011 CBC (INCLUDES DIFF/PLT) 08/03/2016 CBC (INCLUDES DIFF/PLT) 04/16/2014 CBC (INCLUDES DIFF/PLT) 05/19/2013 VITAMIN B-12 AND FOLATE 04/16/2014 COMPREHENSIVE METABOLIC PANEL 04/22/2012 COMPREHENSIVE METABOLIC PANEL 03/02/2011 COMPREHENSIVE METABOLIC PANEL 08/03/2016 COMPREHENSIVE METABOLIC PANEL 05/19/2013 COMPREHENSIVE METABOLIC PANEL 04/16/2014 LIPID PROFILE 04/22/2012 LIPID PROFILE 03/02/2011 LIPID PROFILE 08/03/2016 LIPID PROFILE 05/19/2013 LIPID PROFILE 05/21/2012 LIPID PROFILE 04/16/2014 TETANUS SHOT 05/06/2015 TETANUS SHOT 08/13/2015 Insurance Providers Payer Name Payer Address Payer Phone Subscriber Number Group Number Insured Name Patient Relationship to Insured Coverage Start Date Coverage End Date [facility] [address] [address] [place] [address] [id number] Rah Yanez Self - patient is the insured MEDICAL (GENERAL) HISTORY Medical History History ICD Code hypertension testicular cancer depression neuropathy hypogonadism colonic polyps vitamin D deficiency diabetes RODRGIO hyperlipidemia elevated ALT/AST thyroid nodule coloitis Surgical History Surgery Date(Month/Year) tonsillectomy vasectomy orchiectomy
--- OUTSIDE RECORDS SUMMARY | 2025-06-25 01:40 | XMS_ITS | Clinical Summary ---
Author Organization [facility] Address [address] [facility] [address] [place] [address] Phone Care Team Providers Care Pharmacist Per Diem Name Role Phone Efrain Sales Primary Care Provider Efrain Sales Unavailable Allergies No known active allergies Medications Cholecalciferol (Vitamin D3) 1.25 MG (86234 UT) Tablet Take by mouth. 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 Gender Identity Not on file Sexual Orientation Not on file Last Filed Vital Signs Vital Sign Reading Time Taken Comments Blood Pressure 124/82 01/05/2022 12:51 PM CDT Pulse 101 01/05/2022 12:51 PM CDT Temperature 36.3 C (97.3 F) 01/05/2022 12:51 PM CDT Respiratory Rate 18 01/05/2022 12:51 PM CDT Oxygen Saturation 99% 01/05/2022 12:51 PM CDT Inhaled Oxygen Concentration - - Weight 131.1 kg (289 lb) 01/05/2022 12:51 PM CDT Height 182.9 cm (6') 01/05/2022 12:51 PM CDT Body Mass Index 39.2 01/05/2022 12:51 PM CDT Plan of Treatment Health Maintenance Due Date Last Done Comments Hepatitis C Virus (HCV) Screening 1955 TdaP Immunization 1955 Cologuard 1998 Colonoscopy 1998 Colorectal Cancer Screening 1998 Immunochemical Fecal Occult Blood 1998 Pneumococcal Immunization (50+ years) (1 of 1 - PCV) 2003 Zoster Immunization (1 of 2) 2003 Influenza Immunization (#1) 04/27/202508/27, 06/27/2020, 07/27/2018, Additional history exists SARS-COV-2 Immunization (2024- season) 2025 09/10/2021, 10/19/2020, 09/21/2020 Respiratory Syncytial Virus (RSV) Immunization (Adult) (1 - 1-dose 75+ series) 2028 Hepatitis B Immunization Aged Out No longer eligible based on patient's age to complete this topic Human Papillomavirus (HPV) Immunization Aged Out No longer eligible based on patient's age to complete this topic Meningococcal Immunization (ACWY) Aged Out No longer eligible based on patient's age to complete this topic Rotavirus Immunization Aged Out No lo nger eligible based on patient's age to complete this topic Insurance MEDICARE C [facility] Care Teams Pharmacist Per Diem Relationship Specialty Start Date End Date Efrain Sales [address] [place] [address] PCP - General Family Medicine 09/05/21 Efrain Sales [address] [place] [address] Referring Provider Family Medicine 09/15/21
--- OUTSIDE RECORDS SUMMARY | 2025-06-25 01:40 | XMS_ITS | Encounter Summary ---
Author Organization [facility] Address [address] [place] [address] Care Team Providers Care Damage Assessor Name Role Phone Unavailable Primary Care Provider Unavailabl e Encounter Details Date Type Department Care Team (Late st Contact Info) Description 06/04/2008 [facility] Outpatient Visit [facility] [address] [place] [address] [place] [address] [place] [address] Social History Tobacco Use Types Packs/Day Years Used Date Smoking Tobacco: Former Cigarettes Q uit: 08/27/1984 Alcohol Use Standard Drinks/Week Comments Yes 0 (1 standard drink = 0.6 oz pur e alcohol) occasional Sex and Gender Information Value Date Recorded Sex Assigned at Not on file 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
--- OUTSIDE RECORDS SUMMARY | 2025-06-25 01:40 | XMS_ITS | Clinical Summary ---
Author Organization [facility] Address [address] [place] [address] Care Team Providers Care Hardwood Flooring Specialist Name Role Phone Unavailable Primary Care Provider Unavailabl e Source Comments [facility],non-owned Affiliates and Associated Physician Practices is amultiple site organization consisting of ambulatory clinics and hospital sitesin [place], [place], [place] and [place]. This disclosure is being madepursuant to the Care Everywhere program and may not contain all information available regarding this patient. Last updated 18.[facility] Allergies No known active allergies Medications * Be aware that medications may not be up to date on this document. Alwaysverify current medications with the patient. BYSTOLIC 5 MG TABS Take 5 mg by mouth daily. Active ANDROGEL 1 % gel Apply to affected area daily. Active NEURONTIN 600 MG tablet Take 600 mg by mouth 3 times daily. Active VITAMIN C W/MANUELA HIPS PO Take by mouth. 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 Gender Identity Not on file Sexual Orientation [...] Colorectal Cancer Screening 02/25/2018 AAA SCREENING 2018 DEPRESSION SCREENING 08/27/2024 MEDICARE AWV CALENDAR YEAR 2024 COVID-19 VACCINE (2 - 2024- season) 2025 09/10/2021 INFLUENZA VACCINE (#1) 2025 8, 05/27/2017, 05/21/2015, Additional history exists Respiratory Syncytial Virus (RSV) Vaccine Pt: or [...] complete this topic MENINGOCOCCAL (Group B) VACCINE SHARED DECISION-MAKING Aged Out No longer eligible based on patient's age to complete this topic MENINGOCOCCAL GROUPS A/C/Y/W VACCINE Aged Out No longer eligible based on patient's age to complete this topic Insurance [facility]ED MEDICARE ADV
[2025-06-25 07:47] VITALS: BP 127/81; PULSE 106; RESP 19; TEMP 36.2; O2SAT 96
--- NOTE | 2025-06-25 07:57 | WPDANESEPPF ---
Anes - Initial Pre Proc Eval Procedure: Operation Date: 06/25/25 09:00 Proposed Procedures p Screening Colonoscopy - Gatito Quinn MD Date/Time: 06/25/25 07:57 Surgeon: Gatito Quinn MD Pre Op Diagnosis: Screening Patient Data Age: 69 Gender: M Height: 1.83 m Weight: 121.9 kg Last Vital Signs Temp 97.2 F L 06/25/25 07:47 Pulse 106 H 06/25/25 07:47 Resp 19 06/25/25 07:47 BP 127/81 06/25/25 07:47 Pulse Ox 96 06/25/25 07:47 O2 Del Method Room Air 06/25/25 07:47 Allergies Allergy/AdvReac Type Severity Reaction Status Date / Time duloxetine AdvReac Unknown Diarrhea, Verified 06/25/25 07:46 Dry mouth Home Medications ?Medication ?Instructions ?Recorded ?Confirmed ?Type oxycodone 15 mg tablet 7.5 mg PO Q12H 10/28/24 06/25/25 History amitriptyline 75 mg tablet 75 mg PO QHS #90 tabs 11/25/24 06/25/25 Rx blood-glucose meter (OneTouch #1 ea 01/01/25 06/12/25 Rx Verio Flex Meter) glucagon 1 mg/0.2 mL subcutaneous 1 mg (0.2 mL) subcut ONCE #0.4 mL 01/01/25 06/15/25 Rx auto-injector (Gvoke HypoPen 2-Pack) glucose 4 gram chewable tablet 16 g (4 x 4 gram) PO Q15M PRN 01/01/25 06/15/25 Rx hypoglycemia #360 tabs lancets 33 gauge #300 ea 01/01/25 06/12/25 Rx hydrochlorothiazide 25 mg tablet 25 mg PO DAILY #100 tabs 01/13/25 06/25/25 Rx trazodone 100 mg tablet 150 mg (1.5 x 100 mg) PO QHS #135 01/22/25 06/15/25 Rx tabs blood sugar diagnostic (Contour #300 ea 03/12/25 06/12/25 Rx Next Test Strips) lancets 33 gauge (E-Z Ject Lancets) #200 ea 03/12/25 06/12/25 Rx atorvastatin 10 mg tablet 10 mg PO QHS #100 tabs 04/14/25 06/25/25 Rx glimepiride 4 mg tablet 4 mg PO QAM #100 tabs 04/14/25 06/25/25 Rx semaglutide 1 mg/dose (4 mg/3 mL) See Rx Instructions .Route 05/11/25 06/15/25 Rx subcutaneous pen injector (Ozempic) .COMPLEX #9 mL dapagliflozin propanediol 10 mg See Rx Instructions .Route 05/13/25 06/25/25 Rx tablet (Farxiga) .COMPLEX #90 tabs metoprolol succinate 25 mg 37.5 mg (1.5 x 25 mg) PO DAILY 90 05/20/25 06/25/25 Rx tablet,extended release 24 hr days #150 tabs androgel #1 ea 06/12/25 06/12/25 Rx gabapentin 800 mg tablet 800 mg PO Q12H 06/15/25 06/25/25 History metformin 1,000 mg tablet,extended 1,000 mg PO BID #180 tabs 06/18/25 Rx release 24hr (osmotic) (Fortamet) Patient hx anesthesia problems: none Family hx anesthesia problems: none Results Review: All pre-operative results and documents have been reviewed as part of the pre-operative evaluation. 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 Obstructive sleep apnea Surgical History Surgical History Hx of carpal tunnel repair Right: 2008 Left: 2019 History of tonsillectomy 1959 S/P TURP 2018 Status post orchiectomy Left: 1999 Status post vasectomy 1986 Family History Family History Father Hypertension Heart disease Mother Breast cancer Grandparent Diabetes mellitus Social History Social History Smoking packs per day: 2 Smoking cigarettes per day: 40.0 Years smoked: 10 Smoking pack-years: 20.00 Smoking status: Former smoker Tobacco type: cigarettes Second hand tobacco smoke exposure: No Smoking end date: 08/27/85 Alcohol intake: current Drinks per week: 1 Alcohol use details: 1 - MONTH Substance use: current Substance use type: marijuana Other substance usage details: gummies Do You Feel Safe in your Home?: Yes Lack of Transportation: No Lack of Food: Never True Current Housing: I Have Housing Concerned About Future Housing: No Difficulty Paying Gas/Electric Bills: No Difficulty Paying for Meds: No Currently Unemployed: No Education: High School Diploma/GED Difficulty w/ Childcare or Family Care: No Living arrangements: with family Occupation/Education: retired 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 Hyperlipidemia, DM fsbs 87, RODRIGO on CPAP, sig neuropathy, pt has back stim he forgot to turn off this am. He walks w cane, short distances, no cp or sob. Informed Consent: The patient's anesthetic plan and its attendant risks and benefits were discussed with the patient/family/POA. Questions were solicited and answers provided to the satisfaction of the patient/family/POA.
[2025-06-25] MEDS: LACTATED RINGERS 1,000 ML 150 ML IV CONT (07:59)
--- NOTE | 2025-06-25 08:22 | PM.HPGS ---
History of Present Illness History of Present Illness Consent: Risks, benefits, and alternatives have been discussed and questions answered. Patient agrees to proceed with procedure. 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 Obstructive sleep apnea Surgical History Surgical History Hx of carpal tunnel repair Right: 2008 Left: 2018 History of tonsillectomy 1958 S/P TURP 2018 Status post orchiectomy Left: 1999 Status post vasectomy 1986 Family History Family History Father Hypertension Heart disease Mother Breast cancer Grandparent Diabetes mellitus Social History Social History Smoking packs per day: 2 Smoking cigarettes per day: 40.0 Years smoked: 10 Smoking pack-years: 20.00 Smoking status: Former smoker Tobacco type: cigarettes Second hand tobacco smoke exposure: No Smoking end date: 08/27/85 Alcohol intake: current Drinks per week: 1 Alcohol use details: 1 - MONTH Substance use: current Substance use type: marijuana Other substance usage details: gummies Do You Feel Safe in your Home?: Yes Lack of Transportation: No Lack of Food: Never True Current Housing: I Have Housing Concerned About Future Housing: No Difficulty Paying Gas/Electric Bills: No Difficulty Paying for Meds: No Currently Unemployed: No Education: High School Diploma/GED Difficulty w/ Childcare or Family Care: No Living arrangements: with family Occupation/Education: retired 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 Gender identity (if verbalized by the patient): Male Spiritual care concerns: No Agree to blood products: Yes Meds Home Medications and Allergies Home Medications ?Medication ?Instructions ?Recorded ?Confirmed ?Type oxycodone 15 mg tablet 7.5 mg PO Q12H 10/28/24 06/25/25 History amitriptyline 75 mg tablet 75 mg PO QHS #90 tabs 11/25/24 06/25/25 Rx blood-glucose meter (OneTouch #1 ea 01/01/25 06/12/25 Rx Verio Flex Meter) glucagon 1 mg/0.2 mL subcutaneous 1 mg (0.2 mL) subcut ONCE #0.4 mL 01/01/25 06/15/25 Rx auto-injector (Gvoke HypoPen 2-Pack) glucose 4 gram chewable tablet 16 g (4 x 4 gram) PO Q15M PRN 01/01/25 06/15/25 Rx hypoglycemia #360 tabs lancets 33 gauge #300 ea 01/01/25 06/12/25 Rx hydrochlorothiazide 25 mg tablet 25 mg PO DAILY #100 tabs 01/13/25 06/25/25 Rx trazodone 100 mg tablet 150 mg (1.5 x 100 mg) PO QHS #135 01/22/25 06/15/25 Rx tabs blood sugar diagnostic (Contour #300 ea 03/12/25 06/12/25 Rx Next Test Strips) lancets 33 gauge (E-Z Ject Lancets) #200 ea 03/12/25 06/12/25 Rx atorvastatin 10 mg tablet 10 mg PO QHS #100 tabs 04/14/25 06/25/25 Rx glimepiride 4 mg tablet 4 mg PO QAM #100 tabs 04/14/25 06/25/25 Rx semaglutide 1 mg/dose (4 mg/3 mL) See Rx Instructions .Route 05/11/25 06/15/25 Rx subcutaneous pen injector (Ozempic) .COMPLEX #9 mL dapagliflozin propanediol 10 mg See Rx Instructions .Route 05/13/25 06/25/25 Rx tablet (Farxiga) .COMPLEX #90 tabs metoprolol succinate 25 mg 37.5 mg (1.5 x 25 mg) PO DAILY 90 05/20/25 06/25/25 Rx tablet,extended release 24 hr days #150 tabs androgel #1 ea 06/12/25 06/12/25 Rx gabapentin 800 mg tablet 800 mg PO Q12H 06/15/25 06/25/25 History metformin 1,000 mg tablet,extended 1,000 mg PO BID #180 tabs 06/18/25 Rx release 24hr (osmotic) (Fortamet) Allergies Allergy/AdvReac Type Severity Reaction Status Date / Time duloxetine AdvReac Unknown Diarrhea, Verified 06/25/25 07:46 Dry mouth Vital Signs Vital Signs - 24 hr 06/25/25 07:47 Temperature 97.2 F L Pulse Rate 106 H Respiratory Rate 19 Blood Pressure 127/81 Pulse Oximetry 96 Oxygen Delivery Room Air Exam Const: General: comfortable and no acute distress HENMT: Face/Nose/Sinus: Normal nares present Eyes: General: appearance normal, both eyes and all related structures Neck: Neck: no JVD Resp: Auscultation: clear to auscultation bilaterally Cardio: Rate: regular rate Rhythm: regular rhythm GI: Inspection: non-distended GI Palp: Yes Soft to palpation Skin: General skin exam: normal color Extrem: General: normal to inspection Psych: Mental Status: mental status grossly normal Assessment and Plan Assessment and plan (1) Colon polyp: Code(s): K63.5 - Polyp of colon Status: Acute Assessment and Plan: colonoscopy
--- NOTE | 2025-06-25 08:33 | S_PTH ---
PATIENT: Rah Yanez LOC: [facility]#:[id number] AGE/SX: 69/M ROOM: RE06/25/[address]: Gatito Quinn MD : 1955 BED: DIS: 06/25/2025 SPEC #: [id number] RECD: 06/25/25 10:21 STATUS: MIGUEL RERahel #: [id number] ELO: 06/25/25 08:[address]: Gatito Quinn DEPT: [facility] Surgical RECD BY: Magdalena Chau Tissues: A - Colon Polypectomy Procedures: Hematoxylin and Eosin Stain Gross and Microscopic Level 4
[2025-06-25 08:34] VITALS: BP 105/62; PULSE 76; RESP 27; O2SAT 95
[2025-06-25 08:44] VITALS: BP 114/65; PULSE 75; RESP 23; O2SAT 100
[2025-06-25 08:54] VITALS: BP 113/67; PULSE 71; RESP 26; O2SAT 100
== END 2025-06-25 09:07 | disposition home or self-care (01) ==
PROVIDERS: Referring Provider Student in an Organized Health Care Education/Training Program; Visit Provider Internal Medicine Gastroenterology
PROC: 0DJD8ZZ Inspection of Lower Intestinal Tract, Via Natural or Artificial Opening Endoscopic (ICD-10-PCS; CPT 45378; principal; 2025-06-25 09:00)
DX: Z12.11 Encounter for screening for malignant neoplasm of colon (principal); D12.3 Benign neoplasm of transverse colon; K64.8 Other hemorrhoids; E78.5 Hyperlipidemia, unspecified; E11.42 Type 2 diabetes mellitus with diabetic polyneuropathy; I10 Essential (primary) hypertension; G47.33 Obstructive sleep apnea (adult) (pediatric); G60.8 Other hereditary and idiopathic neuropathies; M43.06 Spondylolysis, lumbar region; F12.90 Cannabis use, unspecified, uncomplicated; E66.9 Obesity, unspecified; Z68.36 Body mass index [BMI] 36.0-36.9, adult; Z79.891 Long term (current) use of opiate analgesic; Z79.84 Long term (current) use of oral hypoglycemic drugs; Z79.85 Long-term (current) use of injectable non-insulin antidiabetic drugs; Z99.89 Dependence on other enabling machines and devices; Z98.890 Other specified postprocedural states; Z87.891 Personal history of nicotine dependence; Z92.3 Personal history of irradiation; Z85.47 Personal history of malignant neoplasm of testis; Z80.3 Family history of malignant neoplasm of breast; Z82.49 Family history of ischemic heart disease and other diseases of the circulatory system
CPT/HCPCS: 45380; 82948; 88305; J2704; J7120